=== PATIENT | female | born 2000 | race Caucasian/White ===

== ENCOUNTER 2023-05-06 10:41 | Observation (INO) | payer OTHER, SELFPAY ==
[2023-05-06] VITALS (9 sets, daily range): BP systolic 108–124; BP diastolic 55–69; PULSE 79–102
[2023-05-06] MEDS: 0.9 % SODIUM CHLORIDE 1,000 ML 1000 ML IV (11:58)
[2023-05-06] MEDS: TERBUTALINE SULFATE 1 MG/ML VIAL 0.25 MG SUBQ (12:01)
[2023-05-06 12:22] LABS: Bilirubin Urine NEGATIVE (NEGATIVE); Blood Urine NEGATIVE (NEGATIVE); Clarity Urine CLEAR (CLEAR); Color Urine LT. YELLOW (YELLOW); Glucose Urine UA NEGATIVE (NEGATIVE); Ketones Urine 40 mg/dL (NEGATIVE); Leukocyte Esterase Urine LARGE (NEGATIVE); Nitrite Urine NEGATIVE (NEGATIVE); Protein Urine NEGATIVE (NEG/TRACE); Specific Gravity Urine 1.025 (1.005-1.025); pH Urine 6.5 (5.0-9.0)
[2023-05-06 12:24] LABS: Urine Microscopic Indicated YES
[2023-05-06] MEDS: NIFEdipine 10 MG CAPSULE 30 MG PO (12:24)
[2023-05-06 12:34] LABS: Bacteria Urine SMALL #/HPF (NONE SEEN)
[2023-05-06 12:35] LABS: Cast Seen? NONE SEEN #/LPF (NONE SEEN); Crystals Seen? None Seen #/HPF (None Seen); Mucus Urine SMALL (NONE SEEN); Squamous Epithelial Cell Urine FEW #/LPF (NONE/RARE); Urine Culture Indicated YES
[2023-05-06] MEDS: CEPHALEXIN 500 MG CAPSULE PO (12:59)
== END 2023-05-06 13:57 | disposition home or self-care (01) ==
PROVIDERS: Admitting Provider Obstetrics & Gynecology; PCP Midwife; Visit Provider Obstetrics & Gynecology
DX: O26.893 Other specified pregnancy related conditions, third trimester (principal); R10.9 Unspecified abdominal pain; Z3A.34 34 weeks gestation of pregnancy
CPT/HCPCS: 81001; 87086; 96372; G0378; G0379; J3105

== ENCOUNTER 2023-06-04 04:38 | Inpatient (IN) | payer OTHER, SELFPAY ==
[2023-06-04] VITALS (76 sets, daily range): BP systolic 100–143; BP diastolic 49–91; PULSE 69–187; RESP 16–18; TEMP 37.3–37.9
--- OUTSIDE RECORDS SUMMARY | 2023-06-04 04:41 | XMS_ITS | CCD ---
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 Name Role Phone Bala Wick Unavailable Unavailable NONE, XXXX Unavailable Unavailable Bala Wick Unavailable Unavailable NONE, XXXX Unavailable Unavailable Unavailable Primary Care Provider Vita Ryder MD Primary Care Provider LISA WHITMOREERIE Admitting Unavailable KRISTIN NKECHI Attending Unavailable VITA SMALL Primary Care Unavailable Unavailable Primary Care Provider Anjali LAMBERTO NKECHI L Attending Unavailable FLORO, NKECHI L Attending Unavailable FLORO, NKECHI L Attending Unavailable FLORO, NKECHI L Attending Unavailable FLORO, NKECHI L Attending Unavailable FLORO, NKECHI L Attending Unavailable FLORO, NKECHI L Attending Unavailable FLORO, NKECHI L Referring Unavailable FLORO, NKECHI L Attending Unavailable Allergies Allergy Classification Reported Allergen(s) Allergy Type Date of Onset Reaction(s) Facility (1 source) Amoxicillin Drug Allergy 10-22-2021 [facility] (1 source) Penicillins Propensity to adverse reactions to drug 04-25-2013 [facility] Medications Current Medications Medication Drug Class(es) Dates Sig (Normalized) Sig (Original) acetaminophen 500 mg oral tablet (1 source) take 1 tablet by mouth every six hours as needed for pain acetaminophen (TYLENOL) 500 MG tablet Take 500 mg by mouth every 6 hours as needed for Pain 0 Active calcium chloride 0.0014 meq/ml / potassium chloride 0.004 meq/ml / sodium chloride 0.103 meq/ml / sodium lactate 0.028 meq/ml injectable solution (2 sources) Start: 10-22-2021 End: 10-22-2021 lactated ringers infusion etodolac 400 mg oral tablet (1 source) Nonsteroidal Anti-inflammatory Drug Start: 07-22-2018 take 1 tablet by mouth twice daily etodolac (LODINE) 400 MG tablet Take 1 tablet by mouth 2 times daily 30 tablet 0 07/22/2018 Active Vit-Fe Fumarate-FA ( VITAMIN PO) (1 source) take 1 tablet by mouth once daily Vit-Fe Fumarate-FA ( VITAMIN PO) Take 1 tablet by mouth daily 0 Active Completed/Discontinued Medications Medication Drug Class(es) Dates Sig (Normalized) Sig (Original) metroNIDAZOLE 250 mg oral tablet (1 source) Nitroimidazole Antimicrobial Start: 10-22-2021 End: 10-22-2021 metroNIDAZOLE (FLAGYL) tablet 2,000 mg Start: 10-22-2021 End: 10-22-2021 metroNIDAZOLE (FLAGYL) table t 2,000 mg Problems Active Problems Problem Classification Problem Date Documented Da te Episodic/Chronic Other complications of (2 sources) Abdominal pain in ; Translations: [Other specified related conditions, unspecified trimester] Onset: 10-22-2021 Episodic Past or Other Problems Problem Classification Problem Date Documented Da te Episodic/Chronic Lymphadenitis (1 source) Mesenteric lymphadenitis; Translations: [Nonspecific mesenteric lymphadenitis] Onset: 07-22-2018 07-22-2018 Episodic Results Test Name Value Interpretation Reference Range Facility US OB FOLLOW UP TRANSABDOMIN AL APPROACHon 04-04-2023 OB FOLLOW UP TRANSABDOMINAL APPROACH FINDINGS: Single live intrauterine . heart rate 138 bpm. somatic motion identified. Cephalic position. Anterior grade 1 placenta. GENA 17.07 cm. Cervical length not obtained secondary to position. Estimated sonographic gestational age 30 weeks, 2 days. This compares with sonographic gestational age by dates of 30 weeks, 2 days. Estimated sonographic date of delivery June 11, 2023. Estimated weight 1566 g (41.3% by LMP percentile). BPD 7.56 cm. HC 27.68 cm. FL 5.86 cm. AC 26.17 cm. IMPRESSION: Impression: Single live intrauterine with estimated sonographic gestational age 30 weeks, 2 days. ELECTRONICALLY SIGNED BY: Moustapha Mascorro MD Normal Not Available Cult,Urineon 10-23-2021 Cult,Urine Specimen Description .CLEAN CATCH URINE Culture NO SIGNIFICANT GROWTH Report Status FINAL 10/23/2021 Normal [facility] Comment on above: Performed By: #### U RC #### [facility] [address] [place] [address] Art Studio Teacher: Butch Herron MD [facility] [address] [place] [address] Art Studio Teacher: Gerardo Dao MD Microscopic Urinalysison - [facility] Bacteria, UA 1+ Abnormal None [facility] Epithelial Cells UA 10 TO 20 [facility] Interpretation and review of laboratory results Abnormal [facility] RBC, UA 2 TO 5 [facility] Trichomonas, UA 3+ Abnormal None [facility] WBC, UA 50 TO 100 [facility] Urinalysison 10-22-2021 Bilirubin Urine Negative NEGATIVE [facility] Color, UA Yellow Yellow [facility] Glucose, Ur Negative NEGATIVE [facility] Interpretation and review of laboratory results Abnormal [facility] Ketones Ql (U) Negative NEGATIVE [facility] Leukocyte esterase Test strip Ql (U) LARGE Abnormal NEGATIVE [facility] Nitrite, Urine Negative NEGATIVE [facility] pH, UA 7.0 [facility] Protein, UA Negative NEGATIVE [facility] Specific [place], UA 1.020 [facility] Turbidity UA Clear Clear [facility] Urine Hgb Negative NEGATIVE [facility] Urobilinogen, Urine Normal Normal [facility] Urinalysis, Routineon 2021 Bilirubin, SemiQt,Ur Negative Normal NEG [facility] Comment on above: Performed By: #### U DORI Hammond #### [facility] [address] [place] [address] Art Studio Teacher: Gerardo Dao MD Blood, Urine Negative Normal NEG [facility] Comment on above: Performed By: #### U AORLANDOO #### [facility] [address] [place] [address] Art Studio Teacher: Gerardo Dao MD Clarity (U) Clear Normal CLEAR [facility] Comment on above: Performed By: #### U A, UMICAO #### [facility] [address] [place] [address] [place] [address] Art Studio Teacher: Gerardo Dao MD Color (U) Yellow Normal YEL [facility] Comment on above: Performed By: #### U A, UMICAO #### [facility] [address] [place] [address] [place] [address] Art Studio Teacher: Gerardo Dao MD Glucose Ql (U) Negative Normal NEG [facility] Comment on above: Performed By: #### U A, UMICAO #### [facility] [address] [place] [address] [place] [address] Art Studio Teacher: Gerardo Dao MD Ketones Ql (U) Negative Normal NEG [facility] Comment on above: Performed By: #### U A, UMICAO #### [facility] [address] [place] [address] Dr[place], [place] [id number] Art Studio Teacher: Gerardo Dao MD Leukocyte esterase Test strip Ql (U) LARGE Abnormal NEG [facility] Comment on above: Performed By: #### U A, UMICAO #### [facility] [address] [place] [address] [place] [address] Art Studio Teacher: Gerardo Dao MD Nitrite,Ur Negative Normal NEG [facility] Comment on above: Performed By: #### U A, UMICAO #### [facility] [address] [place] [address] Art Studio Teacher: Gerardo Dao MD PH,Ur 7.0 Normal 5.0-9.0 [facility] Comment on above: Performed By: #### U A, UMICAO #### [facility] [address] [place], [place] [id number] Art Studio Teacher: Gerardo Dao MD Protein Ql (U) Negative Normal NEG [facility] Comment on above: Performed By: #### U A, UMICAO #### [facility] [address] [place] [address] Dr[place], [place] [id number] Art Studio Teacher: Gerardo Dao MD Spec. [place],Ur 1.020 Normal 1.010-1.020 [facility] Comment on above: Performed By: #### U A, UMICAO #### [facility] [address] [place] [address] Dr[place], [place] [id number] Art Studio Teacher: Gerardo Dao MD Urobilinogen,Ur Normal Normal NORM [facility] Comment on above: Performed By: #### U A, UMICAO #### [address] [place], [place] [id number] Art Studio Teacher: Gerardo Dao MD Urinalysis,Microon 2 ----- Normal [facility] Comment on above: Performed By: #### U A, UMICAO #### [address] [place] [address] Art Studio Teacher: Gerardo Dao MD Bacteria 1+ Abnormal NONE [facility] Comment on above: Performed By: #### U A, UMICAO #### [facility] [address] [place] [address] [place] [address] Art Studio Teacher: Gerardo Dao MD Epithelial cells LM Ql (Urine sed) 10 TO 20 Normal 0-25 [facility] Comment on above: Performed By: #### U A, UMICAO #### [facility] [address] [place] [address] Dr[place], [place] [id number] Art Studio Teacher: Gerardo Dao MD Trichomonas 3+ Abnormal NONE [facility] Comment on above: Performed By: #### U A, UMICAO #### [facility] [address] [place] [address] Dr[place], [place] [id number] Art Studio Teacher: Gerardo Dao MD Urine RBC's 2 TO 5 Normal 0-2 [facility] Comment on above: Performed By: #### U A, ORLANDOO #### [facility] [address] [place] [id number] Art Studio Teacher: Gerardo Dao MD Urine WBC's 50 TO 100 Normal 0-5 [facility] Comment on above: Performed By: #### U A, ORLANDOO #### [facility] [address] [place] [address] Art Studio Teacher: Gerardo Dao MD US OB 2nd/3rd Trimesteron OB 2nd/3rd Trimester FINDINGS: Comparison is made with the prior examination of June 07, 2021. A single, viable intrauterine is present with adequate cardiac (151 beats per minute) and activity and amniotic fluid volume. Amniotic fluid index is 16.0 cm. Morphology is grossly normal. The cervix is long and closed, 4.9 cm. The current sonographic age is 20 weeks and 6 days, based on the following measurements: BPD 4.8 cm (20 weeks, 4 days) Head Qskfrfsyecfww73.3 cm (20 weeks, 5 days) Abdominal Amzczonrfgppt40.3 cm (20 weeks, 3 days) Femur Length 3.7 cm (21 weeks, 4 days) PresentationCephalic Placenta Fundal Grade I Weight (g) by Percentile 65.2%* These measurements result in an estimated date of delivery of January 03, 2022. The current estimated weight is 389 grams (14 ounces). IMPRESSION: Single, viable intrauterine , current sonographic age of 20 weeks and 6 days, with an estimated date of delivery of January 03, 2022. Estimated date of delivery on the prior examination was January 06, 2022. *Estimated Weight (g) by Percentile is based upon an accurate estimated age based on last menstrual period. Report reported and signed by J Luis Jama on 08/22/2021 1132 Normal [facility] Urgent Care Technician Q - ABO GROUP AND RH TYPEon 06-07-2021 ABO group Nom (Bld) A Normal [facility] Comment on above: Order Comment: [facility] performed at: [place], [address] [facility], [address] [place] [address], [phone], School Child Care Attendant: Amado Horner MD [facility] Date/Time: [facility] Results Received Date/Time: [facility] Reported Date/Time: Performed By: #### 8 6702A, 60326X, 79157, 430A, 265F, 42A, 6304R, 2782A, 16122 #### [facility] Default [address] [place] [address] RH TYPE Negative Normal [facility] Comment on above: Order Comment: [facility] performed at: [place], [facility], [address] [facility], [address] [place] [address], [phone], School Child Care Attendant: Amado Horner MD [facility] Date/Time: [facility] Results Received Date/Time: [facility] Reported Date/Time: Result Comment: For additional information, please refer to http://education.WorldViz/faq/LEZ485 (This link is being provided for informational/ educational purposes only.) Performed By: #### 8 6702A, 08604G, 50051, 430A, 265F, 42A, 6304R, 2782A, 63882 #### [facility] [address] [place] [address] Q - ANTIBODY SCREEN,RBC W/RE FL ID,TITER AND AGon 06-07-2021 ANTIBODY SCREEN, RBC W/REFL ID, TITER AND AG Detected Normal [facility] Comment on above: Order Comment: [facility] performed at: [place], [facility], [address] [facility], [address] [place] [address], [address] [place] [address], School Child Care Attendant: Amado Horner MD [facility] Date/Time: [facility] Results Received Date/Time: [facility] Reported Date/Time: Result Comment: Refe rence range No antibodies detected This assay is a screening test for the detection of red blood cell antibodies. The test is not to be used for pretransfusion screening or for the medical management of an alloimmunized . Performed By: #### 8 6702A, 65218U, 90354, 430A, 265F, 42A, 6304R, 2782A, 55516 #### [facility] Default [address] [place] [address] Q - CBC W/DIFF AND PLTon BASOABS 12 cells/uL Normal 0-200 [facility] Comment on above: Order Comment: [facility] performed at: [place], [facility], [address] [place] [address], [address] [place] [address], [address] [place] [address], School Child Care Attendant: Amado Horner MD [facility] Date/Time: [facility] Results Received Date/Time: [facility] Reported Date/Time: Performed By: #### 1 1363, 1149T, 76476S, 02554, 8472 #### [facility] [address] [place] [address] Basophils/100 WBC (Bld) 0.2 % Normal [facility] Comment on above: Order Comment: [facility] performed at: [employer] [facility], [address] [facility], [address] [place] [address], [address] [place] [address], School Child Care Attendant: Amado Horner MD [facility] Date/Time: [facility] Results Received Date/Time: [facility] Reported Date/Time: Performed By: #### 1 1363, 1149T, 83036R, 45671, 8472 #### [facility] [address] [place] [address] EOSABS 68 cells/uL Normal 15-500 [facility] Comment on above: Order Comment: [facility] performed at: [place], [facility], [address] [facility], [address] [place] [address], [address] [place] [address], School Child Care Attendant: Amado Horner MD [facility] Date/Time: [id number] [facility] Received Date/Time: [facility] Reported Date/Time: Performed By: #### 1 1363, 1149T, 79808R, 82090, 8472 #### [facility] [address] [place] [address] Eosinophils/100 WBC (Bld) 1.1 % Normal [facility] Techn[facility] Comment on above: Order Comment: [facility] performed at: [place], [facility], [address] [place] [address], [address] [place] [address], [address] [place] [address], School Child Care Attendant: Amado Horner MD [facility] Date/Time: [facility] Results Received Date/Time: [facility] Reported Date/Time: Performed By: #### 1 1363, 1149T, 21660S, 84634, 8472 #### [facility] [address] [place] [address] Erythrocyte distribution width (RBC) [Ratio] 12.9 % Normal 11.0-15.0 [facility] Techn[facility] Comment on above: Order Comment: [facility] performed at: [place], [facility], [address] [place] [address], [address] [place] [address], [address] [place] [address], School Child Care Attendant: Amado Horner MD [facility] Date/Time: [facility] Results Received Date/Time: [facility] Reported Date/Time: Performed By: #### 1 1363, 1149T, 57374Q, 33495, 8472 #### [facility] [address] [place] [address] Hematocrit (Bld) [Volume fraction] 38.7 % Normal 35.0-45.0 [facility] Techn[facility] Comment on above: Order Comment: [facility] performed at: [place], [facility], [address] [place] [address], [address] [place] [address], [address] [place] [address], School Child Care Attendant: Amado Horner MD [facility] Date/Time: [facility] Results Received Date/Time: [facility] Reported Date/Time: Performed By: #### 1 1363, 1149T, 59070F, 82695, 8472 #### [facility] [address] [place] [address] Hemoglobin (Bld) [Mass/Vol] 12.7 g/dL Normal 11.7-15.5 [facility] Comment on above: Order Comment: [facility] performed at: [place], [facility], [address] , [address] [place] [address], [address] [place] [address], School Child Care Attendant: Amado Horner MD [facility] Date/Time: [facility] Results Received Date/Time: [facility] Reported Date/Time: Performed By: #### 1 1363, 1149T, 21343E, 79942, 8472 #### [facility] Default [address] [place] [address] Lymphocytes (Bld) [#/Vol] 1.978 10*3/uL Normal 850-3900 [facility] Technician Comment on above: Order Comment: [facility] performed at: [place], [facility], [address] , [address] [place] [address], [address] [place] [address], School Child Care Attendant: Amado Horner MD [facility] Date/Time: [facility] Results Received Date/Time: [facility] Reported Date/Time: Performed By: #### 1 1363, 1149T, 32634V, 98900, 8472 #### [facility] [address] [place] [address] Lymphocytes/100 WBC (Bld) 31.9 % Normal [facility] Technician Comment on above: Order Comment: [facility] performed at: [place], [facility], [address], [address] [place] [address], [address] [place] [address], School Child Care Attendant: Amado Horner MD [facility] Date/Time: [facility] Results Received Date/Time: [facility] Reported Date/Time: Performed By: #### 1 1363, 1149T, 65244Z, 51022, 8472 #### [facility] Default [address] [place] [address] MCH (RBC) [Entitic mass] 29.0 pg Normal 27.0-33.0 [facility] Comment on above: Order Comment: [facility] performed at: [facility], [facility], [address] [facility], [address] [place] [address], [address] [place] [address], School Child Care Attendant: Amado Horner MD [facility] Date/Time: [facility] Results Received Date/Time: [facility] Reported Date/Time: Performed By: #### 1 1363, 1149T, 47563H, 03500, 8472 #### [facility] Default [address] [place] [address] MCHC (RBC) [Mass/Vol] 32.8 g/dL Normal 32.0-36.[address] [facility] Comment on above: Order Comment: [facility] performed at: [facility], [facility], [address] [facility], [address] [place] [address], [address] [place] [address], School Child Care Attendant: Amado Horner MD [facility] Date/Time: [facility] Results Received Date/Time: [facility] Reported Date/Time: Performed By: #### 1 1363, 1149T, 49149D, 49133, 8472 #### [facility] Default [address] [place] [address] MCV (RBC) [Entitic vol] 88.4 fL Normal 80.0-100.0 [facility] Care Technician Comment on above: Order Comment: [facility] performed at: [facility], [facility], [address] [place] [address], [address] [place] [address], [address] [place] [address], School Child Care Attendant: Amado Horner MD [facility] Date/Time: [facility] Results Received Date/Time: [facility] Reported Date/Time: Performed By: #### 1 1363, 1149T, 55755X, 24868, 8472 #### [facility] Default [address] [place] [address] MONOABS 391 cells/uL Normal 200-950 [facility] Comment on above: Order Comment: [facility] performed at: [place], [facility], [address] , [address] [place] [address], [address] [place] [address], School Child Care Attendant: Amado Horner MD [facility] Date/Time: [facility] Results Received Date/Time: [facility] Reported Date/Time: Performed By: #### 1 1363, 1149T, 55891O, 19929, 8472 #### [facility] Default [address] [place] [address] Monocytes/100 WBC (Bld) 6.3 % Normal [facility] Comment on above: Order Comment: [facility] performed at: [place], [address] , [address] [place] [address], [address] [place] [address], School Child Care Attendant: Amado Horner MD [facility] Date/Time: [facility] Results Received Date/Time: [facility] Reported Date/Time: Performed By: #### 1 1363, 1149T, 11104T, 80744, 8472 #### [facility] Default [address] [place] [address] Neutrophils (Bld) [#/Vol] 3.751 10*3/uL Normal 0217-1365 [facility] Comment on above: Order Comment: [facility] performed at: [place], [facility], [address] , [address] [place] [address], [address] [place] [address], School Child Care Attendant: Amado Horner MD [facility] Date/Time: [facility] Results Received Date/Time: [facility] Reported Date/Time: Performed By: #### 1 1363, 1149T, 16171S, 14953, 8472 #### [facility] Default [address] [place] [address] Neutrophils/100 WBC (Bld) 60.5 % Normal [facility] Comment on above: Order Comment: [facility] performed at: [place], [facility], [address] [place] [address], [address] [place] [address], [address] [place] [address], School Child Care Attendant: Amado Horner MD [facility] Date/Time: [facility] Results Received Date/Time: [facility] Reported Date/Time: Performed By: #### 1 1363, 1149T, 53920W, 35314, 8472 #### [facility] Default [address] [place] [address] Platelet mean volume (Bld) [Entitic vol] 12.0 fL Normal 7.5-12.5 [facility] Specialist Comment on above: Order Comment: [facility] performed at: [place], [facility], [address] [place] [address], [address] [place] [address], [address] [place] [address], School Child Care Attendant: Amado Horner MD [facility] Date/Time: [facility] Results Received Date/Time: [facility] Reported Date/Time: Performed By: #### 1 1363, 1149T, 90529M, 91190, 8472 #### [facility] Default [address] [place] [address] Platelets (Bld) [#/Vol] 222 10*3/uL Normal 140-400 [facility] Comment on above: Order Comment: [facility] performed at: [place], [facility], [address] [facility], [address] [place] [address], [address] [place] [address], School Child Care Attendant: Amado Horner MD [facility] Date/Time: [facility] Results Received Date/Time: [facility] Reported Date/Time: Performed By: #### 1 1363, 1149T, 67818C, 48204, 8472 #### [facility] Default [address] [place] [address] RBC (Bld) [#/Vol] 4.38 10*6/uL Normal 3.80-5.10 [facility] [place] [facility] Comment on above: Order Comment: [facility] performed at: [place], [facility], [address], [address] [place] [address], [address] [place] [address], School Child Care Attendant: Amado Horner MD [facility] Date/Time: [facility] Results Received Date/Time: [facility] Reported Date/Time: Performed By: #### 1 1363, 1149T, 47934N, 21588, 8472 #### [facility] Default [address] [place] [address] WBC (Bld) [#/Vol] 6.2 10*3/uL Normal 3.8-10.8 [facility] Urgent Care Technician Comment on above: Order Comment: [facility] performed at: [place], [facility], [address], [address] [place] [address], [address] [place] [address], School Child Care Attendant: Amado Horner MD [facility] Date/Time: [facility] Results Received Date/Time: [facility] Reported Date/Time: Performed By: #### 1 1363, 1149T, 49594W, 00366, 8472 #### [facility] Default [address] [place] [address] Q - CHLAMYDIA TRACHOMATIS/NE ISSERIA GONORRHOEAE RNA TMAon 06-07-2021 CHLAMYDIA TRACHOMATIS RNA, TMA, UROGENITAL Not detected Normal NOT DETECTED [facility] Technician Comment on above: Order Comment: [facility] performed at: [place], [facility], [address], [address] [place] [address], [address] [place] [address], School Child Care Attendant: Amado Horner MD [facility] Collection Date/Time: [facility] Results Received Date/Time: [facility] Reported Date/Time: Performed By: #### 1 1363, 1149T, [id number], 93498, 8472 #### [facility] Default [address] [place] [address] NEISSERIA GONORRHOEAE RNA, TMA, UROGENITAL Not detected Normal NOT DETECTED [facility] Technician Comment on above: Order Comment: [facility] performed at: [place], [facility], [address], [address] [place], [address] [place] [address], School Child Care Attendant: Amado Horner MD [facility] Collection Date/Time: [facility] Results Received Date/Time: [facility] Reported Date/Time: Performed By: #### 1 1363, 1149T, 02930J, 06166, 8472 #### [facility] Default [address] [place] [address] Q - CULTURE,URINE,ROUTINEon 06-07-2021 CULTURE, URINE, ROUTINE SEE NOTE Normal [facility] Technician Comment on above: Order Comment: [facility] performed at: [place], [facility], [address], [address] [place] [address], [address] [place] [address], School Child Care Attendant: Amado Horner MD [facility] Collection Date/Time: [facility] Results Received Date/Time: [facility] Reported Date/Time: Result Comment: CULT URE, URINE, ROUTINE Micro Number: [id number] Test Status: Final Specimen Source: Urine Specimen Quality: Adequate Result: Mixed genital ana isolated. These superficial bacteria are not indicative of a urinary tract infection. No further organism identification is warranted on this specimen. If clinically indicated, recollect clean-catch, mid-stream urine and transfer immediately to Urine Culture Transport Tube. Performed By: #### 1 1363, 1149T, 14390D, 61904, 8472 #### [facility] Default [address] [place] [address] Q - DRUG TOX MONITORING 6 TH CONFIRMATION,URINEon 06-07-2021 Amphetamines Negative Normal <500 [facility] Technician Comment on above: Order Comment: [facility] performed at: [place], [facility], [address], [address] [place], [address] [place] [address], School Child Care Attendant: Amado Horner MD [facility] Collection Date/Time: [facility] Results Received Date/Time: [facility] Reported Date/Time: Performed By: #### 1 1363, 1149T, 40652O, 80121, 8472 #### [facility] Default [address] [place] [address] Barbiturates Negative Normal <300 [facility] Comment on above: Order Comment: [facility] performed at: [place], [facility], [address] [place] [address], [address] [place] [address], School Child Care Attendant: Amado Horner MD [facility] Collection Date/Time: [facility] Results Received Date/Time: [facility] Reported Date/Time: Performed By: #### 1 1363, 1149T, 48935W, 75569, 8472 #### [facility] Default [address] [place] [address] Benzodiazepines Negative Normal <100 [facility] Comment on above: Order Comment: [facility] Testing performed at: [place], [facility], [address] , [address] [place] [address], [address] [place] [address], School Child Care Attendant: Amado Horner MD [facility] Collection Date/Time: [facility] Results Received Date/Time: [facility] Reported Date/Time: Performed By: #### 1 1363, 1149T, 91767K, 95014, 8472 #### [facility] Default [address] [place] [address] Cocaine Metabolite Negative Normal <150 [facility] Comment on above: Order Comment: [facility] Testing performed at: [place], [facility], [address] , [address] [place] [address], [address] [place] [address], School Child Care Attendant: Amado Horner MD [facility] Collection Date/Time: [facility] Results Received Date/Time: [facility] Reported Date/Time: Performed By: #### 1 1363, 1149T, 14492Q, 30359, 8472 #### [facility] Default [address] [place] [address] COMMENT SEE NOTE Normal [facility] Specialist Comment on above: Order Comment: [facility] Testing performed at: [place], [facility], [address], [address] [place], [address], School Child Care Attendant: Amado Horner MD [facility] Collection Date/Time: [facility] Results Received Date/Time: [facility] Reported Date/Time: Result Comment: See Note 1 Note 1 This drug testing is for medical treatment only. Analysis was performed as non-forensic testing and these results should be used only by healthcare providers to render diagnosis or treatment, or to monitor progress of medical conditions. For assistance with interpreting these drug results, please contact a [facility] T[facility] Specialist: [phone] M-F, 8am-6pm EST. Performed By: #### 1 1363, 1149T, 15926I, 48176, 8472 #### [facility] Default [address] [place] [address] Result Comment: The analytical performance characteristics of this assay, when used to test SurePath(TM) specimens have been determined by [facility]. The modifications have not been cleared or approved by the FDA. This assay has been validated pursuant to the CLIA regulations and is used for clinical purposes. For additional information, please refer to https://education.[employer]izer/faq/OTD493 (This link is being provided for information/ educational purposes only.) Marijuana Metabolite 20 Negative Normal <20 [facility] Technician Comment on above: Order Comment: [facility] performed at: [place], [facility], [address] [facility], [place], [address], School Child Care Attendant: Amado Horner MD [facility] Collection Date/Time: [facility] Results Received Date/Time: [facility] Reported Date/Time: Performed By: #### 1 1363, 1149T, 89919I, 38603, 8472 #### [facility] Default [address] [place] [address] Methadone Metabolite Negative Normal <100 [facility] Specialist Comment on above: Order Comment: [facility] Testing performed at: [employer], [facility], [address] [facility], [address] [place] [address], [address] [place] [address], School Child Care Attendant: Amado Horner MD [facility] Collection Date/Time: [facility] Results Received Date/Time: [facility] Reported Date/Time: Performed By: #### 1 1363, 1149T, 89854T, 96906, 8472 #### [facility] Default [address] [place] [address] Opiates Negative Normal <100 [facility] Specialist Comment on above: Order Comment: [facility] Testing performed at: [employer], [facility], [address] [place] [address], [address] [place] [address], [address] [place] [address], School Child Care Attendant: Amado Horner MD [facility] Collection Date/Time: [facility] Results Received Date/Time: [facility] Reported Date/Time: Performed By: #### 1 1363, 1149T, 08459B, 28979, 8472 #### [facility] Default [address] [place] [address] Oxycodone Negative Normal <100 [facility] Specialist Comment on above: Order Comment: [facility] performed at: [place], [facility], [address] [place] [address], [address] [place] [address], [address] [place] [address], School Child Care Attendant: Amado Horner MD [facility] Collection Date/Time: [facility] Results Received Date/Time: [facility] Reported Date/Time: Performed By: #### 1 1363, 1149T, 46036R, 91577, 8472 #### [facility] Default [address] [place] [address] Phencyclidine Negative Normal <25 [facility] Technician Comment on above: Order Comment: [facility] Testing performed at: [employer] [facility], [address] , [address] [place] [address], [address] [place] [address], School Child Care Attendant: Amado Horner MD [facility] Collection Date/Time: [facility] Results Received Date/Time: [facility] Reported Date/Time: Performed By: #### 1 1363, 1149T, 37409M, 74410, 8472 #### [facility] Default [address] [place] [address] Q - HEPATITIS B SURFACE ANTI GEN W/ REFLEXon 06-07-2021 HEPATITIS B SURFACE ANTIGEN Non-Reactive Normal NON-REACTIVE [facility] Specialist Comment on above: Order Comment: [facility] Testing performed at: [facility], [facility], [address] [facility], [address] [place] [address], [address] [place] [address], School Child Care Attendant: Amado Horner MD [facility] Collection Date/Time: [facility] Results Received Date/Time: [facility] Reported Date/Time: Performed By: #### 1 1363, 1149T, 57782L, 74588, 8472 #### [facility] Default [address] [place] [address] Q - URINALYSIS WITH REFLEX T O MICROSCOPICon 06-07-2021 Appearance (U) TURBID Abnormal CLEAR [facility] Specialist Comment on above: Order Comment: [facility] Testing performed at: [facility], [facility], [address] [facility], [address] [place] [address], [address] [place] [address], School Child Care Attendant: Amado Horner MD [facility] Collection Date/Time: [facility] Results Received Date/Time: [facility] Reported Date/Time: Performed By: #### 1 1363, 1149T, 19845W, 44901, 8472 #### [facility] Default [address] [place] [address] BACTERIA NONE SEEN Normal NONE SEEN [facility] Technician Comment on above: Order Comment: [facility] Testing performed at: [place], [facility], [address] [facility], [address] [place] [address], [address] [place] [address], School Child Care Attendant: Amado Horner MD [facility] Collection Date/Time: [facility] Results Received Date/Time: [facility] Reported Date/Time: Performed By: #### 1 1363, 1149T, 52391C, 07457, 8472 #### [facility] Default [address] [place] [address] Bilirubin Ql (U) Negative Normal NEGATIVE [facility] Technician Comment on above: Order Comment: [facility] Testing performed at: [place], [facility], [address] , [address] [place] [address], [address] [place] [address], School Child Care Attendant: Amado Horner MD [facility] Collection Date/Time: [facility] Results Received Date/Time: [facility] Reported Date/Time: Performed By: #### 1 1363, 1149T, 84224P, 85923, 8472 #### [facility] Default [address] [place] [address] Color (U) YELLOW Normal YELLOW [facility] Technician Comment on above: Order Comment: [facility] Testing performed at: [place], [facility], [address] , [address] [place] [address], [address] [place] [address], School Child Care Attendant: Amado Horner MD [facility] Collection Date/Time: [facility] Results Received Date/Time: [facility] Reported Date/Time: Performed By: #### 1 1363, 1149T, 19393U, 60951, 8472 #### [facility] Default [address] [place] [address] Glucose Ql (U) Negative Normal NEGATIVE [facility] Urgent Care Technician Comment on above: Order Comment: [facility] Testing performed at: [place], [facility], [address], [address] [place] [address], [address] [place] [address], School Child Care Attendant: Amado Horner MD [facility] Collection Date/Time: [facility] Results Received Date/Time: [id number] [facility] Reported Date/Time: Performed By: #### 1 1363, 1149T, 95470Z, 70729, 8472 #### [facility] Default [address] [place] [address] HYALINE CAST NONE SEEN Normal NONE SEEN [facility]gent Care Technician Comment on above: Order Comment: [facility] Testing performed at: [place], [facility], [address] , [address] [place] [address], [address] [place] [address], School Child Care Attendant: Amado Horner MD [facility] Collection Date/Time: [facility] Results Received Date/Time: [facility] Reported Date/Time: Performed By: #### 1 1363, 1149T, 73843V, 85270, 8472 #### [facility] Default [address] [place] [address] Ketones Ql (U) Negative Normal NEGATIVE [facility] Specialist Comment on above: Order Comment: [facility] Testing performed at: [place], [facility], [address] , [address] [place] [address], [address] [place] [address], School Child Care Attendant: Amado Horner MD [facility] Collection Date/Time: [facility] Results Received Date/Time: [facility] Reported Date/Time: Performed By: #### 1 1363, 1149T, 33994T, 82686, 8472 #### [facility] Default [address] [place] [address] Leukocyte esterase Test strip Ql (U) 3+ Abnormal NEGATIVE [facility] Specialist Comment on above: Order Comment: [facility] Testing performed at: [place], [facility], [address] , [address] [place] [address], [address] [place] [address], School Child Care Attendant: Amado Horner MD [facility] Collection Date/Time: [facility] Results Received Date/Time: [facility] Reported Date/Time: Performed By: #### 1 1363, 1149T, 82641E, 59503, 8472 #### [facility] Default [address] [place] [address] Nitrite Ql (U) Negative Normal NEGATIVE [facility] Urgent Care Technician Comment on above: Order Comment: [facility] Testing performed at: [employer] [facility], [address] [place] [address], [address] [place] [address], [address] [place] [address], School Child Care Attendant: Amado Horner MD [facility] Collection Date/Time: [facility] Results Received Date/Time: [facility] Reported Date/Time: Performed By: #### 1 1363, 1149T, 15977K, 21862, 8472 #### [facility] Default [address] [place] [address] OCCULT BLOOD Negative Normal NEGATIVE [facility] Technician Comment on above: Order Comment: [facility] Testing performed at: [employer] [facility], [address] [place] [address], [address] [place] [address], [address] [place] [address], School Child Care Attendant: Amado Horner MD [facility] Collection Date/Time: [facility] Results Received Date/Time: [facility] Reported Date/Time: Performed By: #### 1 1363, 1149T, 92059B, 15910, 8472 #### [facility] Default [address] [place] [address] pH (U) 8.0 [pH] Normal 5.0-8.0 [facility] Technician Comment on above: Order Comment: [facility] Testing performed at: [employer] [facility], [address] [facility], [address] [place] [address], [address] [place] [address], School Child Care Attendant: Amado Horner MD [facility] Collection Date/Time: [facility] Results Received Date/Time: [facility] Reported Date/Time: Performed By: #### 1 1363, 1149T, 55945H, 44814, 8472 #### [facility] Default [address] [place] [address] Protein Ql (U) TRACE Abnormal NEGATIVE [facility] Urgent Care Technician Comment on above: Order Comment: [facility] Testing performed at: [employer], [employer] [facility], [address] [facility], [address] [place] [address], [address] [place] [address], School Child Care Attendant: Amado Horner MD [facility] Collection Date/Time: [facility] Results Received Date/Time: [facility] Reported Date/Time: Performed By: #### 1 1363, 1149T, 34227J, 13840, 8472 #### [facility] Default [address] [place] [address] RBC 0-2 Normal < OR = 2 [facility] Technician Comment on above: Order Comment: [facility] Testing performed at: [place], [employer] [facility], [address] [facility], [address] [place] [address], [address] [place] [address], School Child Care Attendant: Amado Horner MD [facility] Collection Date/Time: [facility] Results Received Date/Time: [facility] Reported Date/Time: Performed By: #### 1 1363, 1149T, 65396F, 39701, 8472 #### [facility] Default [address] [place] [address] Specific gravity (U) [Rel density] 1.018 Normal 1.001-1.035 [facility] Technician Comment on above: Order Comment: [facility] Testing performed at: [place], [employer] [facility], [address] [facility], [address] [place] [address], [address] [place] [address], School Child Care Attendant: Amado Horner MD [facility] Collection Date/Time: [facility] Results Received Date/Time: [facility] Reported Date/Time: Performed By: #### 1 1363, 1149T, 65576P, 74840, 8472 #### [facility] Default [address] [place] [address] SQUAMOUS EPITHELIAL CELLS 10-20 Abnormal < OR = 5 [facility] Technician Comment on above: Order Comment: [facility] Testing performed at: [employer], [employer], [address] [facility], [address] [place] [address], [address] [place] [address], School Child Care Attendant: Amado Horner MD [facility] Collection Date/Time: [facility] Results Received Date/Time: [facility] Reported Date/Time: Performed By: #### 1 1363, 1149T, 01232J, 42115, 8472 #### [facility] Default [address] [place] [address] WBC 0-5 Normal < OR = 5 [facility] Technician Comment on above: Order Comment: [facility] Testing performed at: [employer], [facility], [address], [address] [place], [address], School Child Care Attendant: Amado Horner MD [facility] Collection Date/Time: [id number] [facility] Results Received Date/Time: [id number] [facility] Reported Date/Time: Performed By: #### 1 1363, 1149T, 53738E, 89383, 8472 #### [facility] Default [address] [place] [address] US OB 1ST Trimesteron 2021 US OB 1ST Trimester FINDINGS: A single intrauterine gestational sac is present without significant subchorionic hemorrhage. A single pole is present, cardiac heart rate identified (168 beats per minute). Yolk sac also is seen. Current sonographic age is 9 weeks and 4 days based on the crown-rump length measurement of2.8 cm. Based on this age, current estimated date of delivery is January 06, 2022. No pelvic fluid or worrisome adnexal mass lesions are seen. Cervical length is 3.8 cm. IMPRESSION: Findings consistent with an early intrauterine gestational , current sonographic age of 9 weeks and 4 days resulting in an estimated date of delivery of January 06, 2022. Report reported and signed by J Luis Jama on 06/07/2021 1200 Normal [facility] Urgent Care Technician Q - CHLAMYDIA TRACHOMATIS/NE ISSERIA GONORRHOEAE RNA TMAon 05-09-2021 CHLAMYDIA TRACHOMATIS RNA, TMA, UROGENITAL Not detected Normal NOT DETECTED [facility] Technician Comment on above: Order Comment: [facility] Testing performed at: [facility] [employer], [facility], [address], [address] [place], [address] [place] [address], School Child Care Attendant: Amado Horner MD [facility] Collection Date/Time: [facility] Results Received Date/Time: [facility] Reported Date/Time: Performed By: #### 1 1363, 1149T, 74174W, 37705, 8472 #### [facility] Default [address] [place] [address] COMMENT SEE NOTE Normal [facility] Comment on above: Order Comment: [facility] Testing performed at: [place], [facility], [address] , [address] [place] [address], [address] [place] [address], School Child Care Attendant: Amado Horner MD [facility] Collection Date/Time: [facility] Results Received Date/Time: [facility] Reported Date/Time: Result Comment: The analytical performance characteristics of this assay, when used to test SurePath(TM) specimens have been determined by [facility]. The modifications have not been cleared or approved by the FDA. This assay has been validated pursuant to the CLIA regulations and is used for clinical purposes. For additional information, please refer to https://education.[employer]/faq/IZS344 (This link is being provided for information/ educational purposes only.) Performed By: #### 1 1363, 1149T, 98977S, 10749, 8472 #### [facility] Default [address] [place] [address] NEISSERIA GONORRHOEAE RNA, TMA, UROGENITAL Not detected Normal NOT DETECTED [facility] Technician Comment on above: Order Comment: [facility] performed at: [place], [facility], [address] , [address] [place] [address], [address] [place] [address], School Child Care Attendant: Amado Horner MD [facility] Collection Date/Time: [facility] Results Received Date/Time: [facility] Reported Date/Time: Performed By: #### 1 1363, 1149T, 67803E, 08149, 8472 #### [facility] Default [address] [place] [address] Q - HCG [place] Q[place] 2 [place] [address] m[IU]/mL [facility] Specialist Comment on above: Order Comment: [facility] performed at: [employer] [facility], [address], [address] [place] [address], [address] [place] [address], School Child Care Attendant: Amado Horner MD [facility] Collection Date/Time: [facility] Results Received Date/Time: [facility] Reported Date/Time: Result Comment: Refe rence Range Non or premenopausal <5 Postmenopausal <10 Values from different assay methods may vary. The use of this assay to monitor or to diagnose patients with cancer or any condition unrelated to has not been cleared or approved by the FDA or the hl7 interface developer of the assay. Performed By: #### 1 1363, 1149T, 47166G, 74566, 8472 #### [facility] Default [address] [place] [address] Q - HEPATITIS C ANTIBODY W/R EFLEX TO HCV RNA,QUANT,RT-PCRon 05-09-2021 HEPATITIS C ANTIBODY Non-Reactive Normal NON-REACTIVE [facility] Comment on above: Order Comment: [facility] performed at: [employer] [facility], [address] [facility], [address] [place] [address], [address] [place] [address], [employer] Child Care Attendant: Amado Horner MD [facility] Collection Date/Time: [facility] Results Received Date/Time: [facility] Reported Date/Time: Performed By: #### 1 1363, 1149T, 46654E, 77166, 8472 #### [facility] Default [address] [place] [address] SIGNAL TO CUT-OFF 0.02 Normal <1.00 [facility] Comment on above: Order Comment: [facility] performed at: [employer] [facility], [address] , [address] [place] [address], [address], School Child Care Attendant: Amado Horner MD [facility] Date/Time: [facility] Results Received Date/Time: [facility] Reported Date/Time: Result Comment: HCV antibody was non-reactive. There is no laboratory evidence of HCV infection. In most cases, no further action is required. However, if recent HCV exposure is suspected, a test for HCV RNA (test code 16493) is suggested. For additional information please refer to http://[employer] Live [employer]/faq/QKV46d7 (This link is being provided for informational/ educational purposes only.) Performed By: #### 1 1363, 1149T, 09827L, 14402, 8472 #### [facility] Default [address] [place] [address] Q - HIV 1/2 ANTIGEN/ANTIBODY ,FOURTH GENERATION W/RFLon 05-09-2021 HIV AG/AB, 4TH GEN Non-Reactive Normal NON-REACTIVE No rthern [facility] Comment on above: Order Comment: [facility] performed at: [facility], [employer], [address] [place] [address], [address] [place] [address], [address], School Child Care Attendant: Amado Horner MD [facility] Collection Date/Time: [facility] Results Received Date/Time: [facility] Reported Date/Time: Result Comment: HIV- 1 antigen and HIV-1/HIV-2 antibodies were not detected. There is no laboratory evidence of HIV infection. PLEASE NOTE: This information has been disclosed to you from records whose confidentiality may be protected by state law. If your state requires such protection, then the state law prohibits you from making any further disclosure of the information without the specific written consent of the person to whom it pertains, or as otherwise permitted by law. A general authorization for the release of medical or other information is NOT sufficient for this purpose. For additional information please refer to [email or web address] (This link is being provided for informational/ educational purposes only.) The performance of this assay has not been clinically validated in patients less than 2 years old. Performed By: #### 1 1363, 1149T, 83828X, 88730, 8472 #### [facility] Default [address] [place] [address] Q - RPR (MONITOR) W/RFX TITE Jesus 05-09-2021 RPR (MONITOR) W/REFL TITER Non-Reactive Normal NON-REACTIVE [facility] Urgent Care Technician Comment on above: Order Comment: [facility] performed at: QPT, [facility], [address], [address] [facility], [place], [address], School Child Care Attendant: Amado Horner MD [facility] Collection Date/Time: [id number] [facility] Results Received Date/Time: [id number] [facility] Reported Date/Time: [id number] Performed By: #### 1 1363, 1149T, 60850E, 59567, 8472 #### [facility] [address] [place] [address] Basic Metabolic Panelon 12-30 Calcium [Mass/Vol] 9.4 mg/dL Normal 8.2-10.2 [facility] Comment on above: Performed By: #### C BC, BMP #### [facility] [address] [place] [address] [place] Chloride [Moles/Vol] 103 mmol/L Normal 95-114 [facility] Comment on above: Performed By: #### C BC, BMP #### [facility] [address] CO2 [Moles/Vol] 24.6 mmol/L Normal 22.0-30.0 [facility] Comment on above: Performed By: #### C BC, BMP #### [facility] [address] Creatinine [Mass/Vol] 0.75 mg/dL Normal 0.44-1.03 [facility] Comment on above: Performed By: #### C BC, BMP #### [facility] [address] [place] [address] [place] Creatinine Clr Calc Pharmacy 123.87 [facility] Comment on above: Result Comment: PERF ORMED BY: [place] [address] PATHOLOGIST EDUCATION TRAINER BYRON SCOTT M.D. Performed By: #### C BC, BMP #### [facility] [address] [place] [address] [place] Estimated GFR ( Jodie > 60 [facility] Comment on above: Result Comment: GFR estimated reference range: According to KDOQI guidelines, <60 ml/min/1.73m2 is sufficient to diagnose a patient with chronic kidney disease. Performed By: #### C BC, BMP #### [facility] [address] [place] [address] [place] Estimated GFR (Non- Am > 60 [facility] Comment on above: Performed By: #### C BC, BMP #### [facility] [address] Glucose [Mass/Vol] 85 mg/dL Normal 70-100 [facility] Comment on above: Result Comment: [place] Glucose Reference Range is dependent on time and content of last meal. Glucose of more than 200 mg/dL in a nonstressed, ambulatory subject supports the diagnosis of Diabetes Mellitus. ADA recommended reference range Performed By: #### C BC, BMP #### [address] Potassium [Moles/Vol] 4.0 mmol/L Normal 3.5-5.1 [facility] Comment on above: Performed By: #### C BC, BMP #### [place] [address] [place] Sodium [Moles/Vol] 136 mmol/L Normal 136-146 [facility] Comment on above: Performed By: #### C BC, BMP #### [place] [id number] [place] Urea nitrogen [Mass/Vol] 8 mg/dL Low 9-23 [facility] Comment on above: Performed By: #### C BC, BMP #### [address] abdomen pelvis wo conon 0 01-22-2021 CT abdomen pelvis wo con [facility] [address] [place] [address] [place] [address] CT Scan Report Signed Patient: Magalie Fajardo MR#: [id number] 43 : 2000 Acct:[id number] Age/Sex: 20 / F ADM Date: 01/22/21 Loc: ER Room: Type: [facility] ER Attending Dr: Ordering Provider: Aranza Reynolds PA-C Date of Service: 01/22/21 CT/CT abdomen pelvis wo con: r/o kidney stone Copies to: Aranza Reynolds PA-C CT abdomen and pelvis 01/22/2021. CLINICAL DATA: Abdominal pain. TECHNIQUE: CT of the abdomen and pelvis was performed without contrast. Axial, sagittal, and coronal reconstructions were created and reviewed. This CT exam was performed using one or more of the following dose reduction techniques: Automated exposure control, adjustment of the mA and/or kV according to patient size, or use of iterative reconstruction technique. COMPARISON: None. FINDINGS: Images of the lower chest are unremarkable. The liver, spleen, pancreas, and both adrenal glands appear unremarkable. There are tiny nonobstructing calculi in both kidneys. No ureteral calculus is identified. No hydronephrosis or hydroureter is seen. The wall of the urinary bladder is mildly thickened. The uterus is retroverted. No acute intestinal abnormality is identified. The appendix appears unremarkable. No free intra-abdominal air is seen. There is a trace amount of free fluid in the pelvis. There is a mildly enlarged right inguinal lymph node with a short axis dimension of 1.4 cm. No abdominal wall abnormality is noted. CT/CT abdomen pelvis wo con IMPRESSION: 1. Bilateral nephrolithiasis. No ureteral calculus or obstructive uropathy. 2. Mildly thickened urinary bladder wall. 3. Retroverted uterus. 4. Trace free fluid in the pelvis. 5. Mildly enlarged right inguinal lymph node. Impression dictated by: Davonte Parker Jr., M.D.01/22/2021 3:14 PM Dictation Location: [place] [address] Transcribed By: [facility] 01/22/21 1514 Dictated By: Davonte Parker Jr, MD 01/22/21 1507 Signed By: 01/22/21 1514 [facility] Complete Blood Count Auto Di ffon 01-22-2021 Basophils (Bld) [#/Vol] 0.0 10*3/uL Normal 0.0-0.2 [facility] Comment on above: Result Comment: PERF ORMED BY: [place] [address] PATHOLOGIST EDUCATION TRAINER BYRON SCOTT M.D. Performed By: #### C BC, BMP #### [address] Basophils/100 WBC (Bld) 0.2 % Normal . [facility] Comment on above: Performed By: #### C BC, BMP #### [address] Eosinophils (Bld) [#/Vol] 0.0 10*3/uL Normal 0.0-0.45 [facility] Comment on above: Performed By: #### C BC, BMP #### [address] Eosinophils/100 WBC (Bld) 0.7 % Normal . [facility] Comment on above: Performed By: #### C BC, BMP #### [address] Erythrocyte distribution width (RBC) [Ratio] 13.2 % Normal 11.9-15.3 [facility] Comment on above: Performed By: #### C BC, BMP #### [address] Hematocrit (Bld) [Volume fraction] 40.9 % Normal 34.0-46.4 [facility] Comment on above: Performed By: #### C BC, BMP #### [place] [address] [place] Hemoglobin (Bld) [Mass/Vol] 13.7 g/dL Normal 11.8-15.4 [facility] Comment on above: Performed By: #### C BC, BMP #### [place] [address] [place] Lymphocytes (Bld) [#/Vol] 2.4 10*3/uL Normal 1.00-4.8 [facility] Comment on above: Performed By: #### C BC, BMP #### [address] Lymphocytes/100 WBC (Bld) 36.3 % Normal . [facility] Comment on above: Performed By: #### C BC, BMP #### [address] MCH (RBC) [Entitic mass] 29.8 pg Normal 24.7-34.3 [facility] Comment on above: Performed By: #### C BC, BMP #### [address] MCV (RBC) [Entitic vol] 88.6 fL Normal 80-100 [facility] Comment on above: Performed By: #### C BC, BMP #### [address] Mean Corpuscular HGB Conc 33.6 g/dL Normal 32.0-35.0 [facility] Comment on above: Performed By: #### C BC, BMP #### [address] Monocytes (Bld) [#/Vol] 0.4 10*3/uL Normal 0.0-0.8 [facility] Comment on above: Performed By: #### C BC, BMP #### [address] Monocytes/100 WBC (Bld) 6.5 % Normal . [facility] Comment on above: Performed By: #### C BC, BMP #### [address] Neutrophils (Bld) [#/Vol] 3.7 10*3/uL Normal 1.8-7.7 [facility] Comment on above: Performed By: #### C BC, BMP #### [address] Neutrophils/100 WBC (Bld) 56.3 % Normal . [facility] Comment on above: Performed By: #### C BC, BMP #### [place] [id number] [place] Nucleated RBC/100 WBC (Bld) [Ratio] 0.1 % Normal 0-0.5 [facility] Comment on above: Performed By: #### C GLENN, BMP #### [address] Platelet mean volume (Bld) [Entitic vol] 9.2 fL Normal 6.3-10.7 [facility] Comment on above: Performed By: #### C BC, BMP #### [place] [address] [place] Platelets (Bld) [#/Vol] 199 10*3/uL Normal 150-450 [facility] Comment on above: Performed By: #### C GLENN, BMP #### [address] RBC (Bld) [#/Vol] 4.62 10*6/uL Normal 3.60-5.00 [facility] Comment on above: Performed By: #### C GLENN, BMP #### [address] WBC (Bld) [#/Vol] 6.6 10*3/uL Normal 4.5-11.0 [facility] Comment on above: Performed By: #### C GLENN, BMP #### [place] [address] [place] Dipstick and Microscopicon 0 01-22-2021 Appearance (U) Clear Normal Clear [facility] Comment on above: Order Comment: Name Collection Type:: Voided Performed By: #### A DDONUAPLUS, UHCG, CUU #### [place] [address] [place] Bacteria,Urine 1+ High None Seen [facility] Comment on above: Order Comment: Name Collection Type:: Voided Performed By: #### A DDONUAPLUS, UHCG, CUU #### [place] [address] [place] Bilirubin,Urine Negative Normal Negative [facility] Comment on above: Order Comment: Name Collection Type:: Voided Performed By: #### A DDONUAPLUS, UHCG, CUU #### [facility] [address] [place] [address] [place] Color (U) Yellow Normal Yellow [facility] Comment on above: Order Comment: Name Collection Type:: Voided Performed By: #### A DDONUAPLUS, UHCG, CUU #### [place] [address] [place] Glucose Ql (U) Normal Normal Normal [facility] Comment on above: Order Comment: Name Collection Type:: Voided Performed By: #### A DDONUAPLUS, UHCG, CUU #### [place] [address] [place] Hyaline Casts,Urine 9-19 High 0-8 [facility] Comment on above: Order Comment: Name Collection Type:: Voided Performed By: #### A DDONUAPLUS, UHCG, CUU #### [place] [address] [place] Ketones Ql (U) Trace High Negative [facility] Comment on above: Order Comment: Name Collection Type:: Voided Performed By: #### A DDONUAPLUS, UHCG, CUU #### [address] Leukocyte esterase Test strip Ql (U) 2+ High Negative [facility] Comment on above: Order Comment: Name Collection Type:: Voided Performed By: #### A DDONUAPLUS, UHCG, CUU #### [place] [address] [place] Nitrite,Urine Negative Normal Negative [facility] Comment on above: Order Comment: Name Collection Type:: Voided Performed By: #### A DDONUAPLUS, UHCG, CUU #### [place] [address] [place] Occult Blood,Urine Negative Normal Negative [facility] Comment on above: Order Comment: Name Collection Type:: Voided Performed By: #### A DDONUAPLUS, UHCG, CUU #### [facility] [address] [place] [address] pH (U) 5.5 [pH] Normal 5.0-9.0 [facility] Comment on above: Order Comment: Name Collection Type:: Voided Performed By: #### A DDONUAPLUS, UHCG, CUU #### [address] Protein,Urine Trace High Negative [facility] Comment on above: Order Comment: Name Collection Type:: Voided Performed By: #### A DDONUAPLUS, UHCG, CUU #### [facility] [address] [place] [address] RBC LM.HPF (Urine sed) [#/Area] 0 /[HPF] Normal 0-4 [facility] Comment on above: Order Comment: Name Collection Type:: Voided Performed By: #### A DDONUAPLUS, UHCG, CUU #### [address] Specificy [place],Urine 1.029 Normal 1.001-1.030 [facility] Comment on above: Order Comment: Name Collection Type:: Voided Performed By: #### A DDONUAPLUS, UHCG, CUU #### [address] Squamous Epithelial Cell,Urine 5-9 High 0-2 [facility] Comment on above: Order Comment: Name Collection Type:: Voided Performed By: #### A DDONUAPLUS, UHCG, CUU #### [address] Urobilinogen,Urine Normal Normal Normal [facility] Comment on above: Order Comment: Name Collection Type:: Voided Performed By: #### A DDONUAPLUS, UHCG, CUU #### [address] WBC,Urine 20-49 High 0-4 [facility] Comment on above: Order Comment: Name Collection Type:: Voided Performed By: #### A DDONUAPLUS, UHCG, [facility] #### [facility] [address] [place] [id number] [facility] HCG,Urineon 01-22-2021 Beta HCG ( test) Ql (U) Negative Normal [facility] Comment on above: Order Comment: Name Collection Type:: Voided Result Comment: PERF ORMED BY: [place] [address] PATHOLOGIST EDUCATION TRAINER BYRON SCOTT M.D. Performed By: #### A DDONUAPLUS, [facility], [facility] #### [facility] [address] [place] [id number] [facility] Urine Cultureon 01-22-2021 Bacteria identified Cx Nom (U) ORGANISM: Escherichia coli (O:ESCCOL) [place] Count >100,000 Aerobic JOSE FRANCISCO Charge (NUC86) ----- SUSCEPTIBILITY ---- ORGANISM: O:ESCCOL ANTIBIOTIC INTERPRETATION JOSE FRANCISCO Amikacin S <16 Ampicillin R >16 Ampicillin/Sulbactam I 1616/8 Aztreonam S <4 Cefazolin S <2 Cefepime S <2 Ceftazidime S <1 Ceftazidime/Avibacta m S <8 Ceftriaxone S <1 Ciprofloxacin S <1 Ertapenem S <0.5 Gentamicin S <4 Levofloxacin S <2 Meropenem S <1 Nitrofurantoin S <32 Piperacillin/Tazobac aguayo S <16 Tetracycline S <4 Tigecycline S <2 Tobramycin S <4 Trimethoprim/Sulfame thoxazole S <2/38 S = SUSCEPTIBLE I = INTERMEDIATE R = RESISTANT BLANK = DATA NOT AVAILABLE, OR DRUG NOT ADVISABLE OR TESTED R* = RESISTANCE DUE TO EXTENDED SPECTRUM BETA-LACTAMASES ESBL = EXTENDED SPECTRUM BETA-LACTAMASE TFG = THYMIDINE-DEPENDENT STRAIN NELI = BETA-LACTAMASE POSITIVE IB = INDUCIBLE BETA-LACTAMASE. APPEARS IN PLACE OF 'S' WITH SPECIES KNOWN TO POSSESS INDUCIBLE BETA-LACTAMASES. POTENTIALLY THEY MAY BECOME RESISTANT TO ALL B-LACTAM DRUGS. PERFORMED BY: [facility] [address] [place] [address] PATHOLOGIST EDUCATION TRAINER BYRON SCOTT M.D. [facility] Comment on above: Performed By: #### [facility] #### [facility] [address] [place] [id number] [facility] Vital Signs Date Time Vital Sign Value Performing Clinician Eli merino 10-22-2021 11:57-0400 Diastolic blood pressure 68 mm[Hg] Nkechi Whitmore PRESSURE WELDER - CNM Work Phone: [facility] [employer] [facility] 10-22-2021 11:57-0400 Heart rate 80 /min Nkechi Whitmore PRESSURE WELDER - CNM Work Phone: [facility] [employer] [facility] 10-22-2021 11:57-0400 Respiratory rate 16 /min Nkechi Whitmore PRESSURE WELDER - CNM Work Phone: [facility] 10-22-2021 11:57-0400 Systolic blood pressure 127 mm[Hg] Nkechi Whitmore PRESSURE WELDER - CNM Work Phone: [facility] [employer] [facility] 10-22-2021 10:16-0400 Body height 170.2 cm Nkechi Whitmore APRN - CNM Work Phone: [facility] [employer] [facility] 10-22-2021 10:16-0400 Body mass index (BMI) [Ratio] 29.76 kg/m2 Nkechi Whitmore APRN - CNM Work Phone: [facility] [employer] [facility] 10-22-2021 10:16-0400 Body weight 86.18 kg Nkechi Whitmore APRN - CNM Work Phone: [facility] [employer] [facility] 10-22-2021 10:10-0400 Body temperature 98.4 [degF] Nkechi Whitmore APRN - CNM Work Phone: [employer] Encounters Encounter Date Encounter Type Care Provider Facility Start: 05-28-2023 End: 05-29-2023 ambulatory NKECHINohemy WHITMORE Not Available Start: 05-21-2023 End: 05-22-2023 ambulatory NKECHI L FLORO Not Available Start: 05-14-2023 End: 05-15-2023 ambulatory NKECHI L FLORO Not Available Start: 05-07-2023 End: 05-08-2023 ambulatory NKECHI L FLORO Not Available Start: 05-02-2023 End: 05-03-2023 ambulatory NKECHI L FLORO Not Available Start: 04-17-2023 End: 04-18-2023 ambulatory NKECHI L FLORO Not Available Start: 04-15-2023 [facility] Start: 04-04-2023 End: 04-05-2023 ambulatory NKECHI L FLORO Not Available Start: 03-07-2023 End: 03-08-2023 ambulatory NKECHI L FLORO Not Available Start: 07-13-2022 Letter encounter Jan adina Start: 10-22-2021 End: 10-22-2021 ambulatory NKECHI WHITMORE [facility] Start: 10-22-2021 End: 10-22-2021 Subsequent hospital visit by physician Nkechi Murray CNM Work Phone: [facility] Labor [facility] Delivery Start: 07-18-2021 Letter encounter [place] holden Start: 04-19-2018 End: 04-20-2018 Patient encounter procedure Bala Abeberavi Facility:[id number] Start: 04-16-2018 End: 04-17-2018 Patient encounter procedure Bala Abeberavi Facility:CD:[id number] Procedures Date Procedure Procedure Detail Performing Clinician Start: 10-22-2021 Urinalysis microscopic only Nkechi Lambertmatt Murray CNM Work Phone: Start: 10-22-2021 Urnls dip stick/tabl et rgnt auto w/o microscopy Nkechimoe Lambertmatt Murray CNM Work Phone: Start: 06-07-2021 Antibody rubella Comment on above: Order Comment: [employer] Testing performed at: [facility], [employer] [facility], [address], [address] [facility], [place], [address], School Child Care Attendant: Amado Horner MD [facility] Date/Time: [id number] [facility] Results Received Date/Time: [id number] [facility] Reported Date/Time: [id number] Result Comment: Inde x Interpretation ----- <0.90 Not consistent with immunity 0.90-0.99 Equivocal > or = 1.00 Consistent with immunity The presence of rubella IgG antibody suggests immunization or past or current infection with rubella virus. Performed By: #### 1 1363, 1149T, 66318F, 85284, 8472 #### [facility] [address] [place] [address] Plan of Treatment Date Care Activity Detail Author Start: 2050 Shingles (RZV) Vacci ne (1 of 2) Shingles (RZV) Vaccine (1 of 2) [facility] Start: 12-29-2022 Influenza vaccination Influenza Vacc ine (#1) [facility] Start: 01-28-2022 Influenza vaccination Influenza Vacc ine (#1) [facility] Start: 12-29-2021 Influenza vaccination Flu vacc ine (Season Ended) [facility] Start: 2021 Screening for malign ant neoplasm of cervix Pap Smear [facility] Start: 11-28-2020 Influenza vaccination Influenza Vacc ine (#1) [facility] Start: 2019 DTaP/Tdap/Td vaccine (1 - Tdap) DTaP/Tdap/Td vaccine (1 - Tdap) [facility] Start: 2018 [facility] C [facility] Start: 2018 Screening for Chlamy cruz trachomatis STI Screening (Age 18-24) [facility] Start: 2018 STI Screening (Age 18-24) STI Screening (Age 18-24) [facility] Start: 2018 Tetanus + diphtheria + acellular pertussis vaccine (product) Tdap Booster [facility] Start: 2016 Meningococcal B (Bexsero,OMV) Vaccine (Optional,16-23 years) Meningococcal B (Bexsero,OMV) Vaccine (Optional,16-23 years) [facility] Start: 2016 Meningococcal B (Bexsero,OMV) Vaccine (Optional,16-23 years) (#1) Meningococcal B (Bexsero,OMV) Vaccine (Optional,16-23 years) (#1) [facility] Start: 2016 Screening for Chlamy cruz trachomatis Chlamydia screen [facility] Start: 2015 HIV screening [facility] Start: 2012 Depression Screen Depression Screen [facility] Start: 2011 HPV vaccine (1 - 2-d ose series) HPV vaccine (1 - 2-dose series) [facility] Start: 2011 Vaccination for bk n papillomavirus [facility] Start: 2005 COVID-19 Vaccine (1) COVID-19 Vaccin e (1) [facility] Start: 2001 Varicella vaccine (1 of 2 - 2-dose childhood series) Varicella vaccine (1 of 2 - 2-dose childhood series) [facility] Start: 2000 COVID-19 Vaccine (#1) COVID-19 Vacci ne (#1) [facility] End: 10-22-2021 Bacteria identified in Urine by Culture [facility] [employer] Phone: Comment on above: One Time for 1 Occur rences starting 10/22/2021 until 10/22/2021 Once for 1 Occurrenc es starting 10/22/2021 until 10/22/2021 Nonrebreather mask oxygen Nonrebreather mask oxygen Respiratory Care Routine As directed - RT (PRN) until discontinued starting 10/22/2021 [facility]: Comment on above: As directed - RT (MT N) until discontinued starting 10/22/2021 End: 10-22-2021 SVE SVE Point of Care Testing Routine One Time for 1 Occurrences starting 10/22/2021 until 10/22/2021 [facility] Phone: Comment on above: One Time for 1 Occur rences starting 10/22/2021 until 10/22/2021 Immunizations Immunization Date Immunization Notes Care Provider Oren gooden 10-30-2019 tuberculin skin test ; purified protein derivative solution, intradermal [facility] Payers Date Payer Category Payer Medicaid [id number] 2021 Private Health Insurance [id number] 2021 Unknown [id number] 2008 Private Health Insurance [employer] - HMO/PPO/POS OPEN CHOICE PPO [id number] 2008-Present [employer] [facility] [address] [place] [address] PPO [id number] 2000 Unknown [id number] 73 2000 Unknown [id number] 259 2000 Unknown [id number] 259 2000 Unknown [id number] 259 2000 Unknown [id number] 259 2000 Unknown [id number] 259 2000 Unknown [id number] 259 2000 Unknown [id number] 259 2000 Unknown [id number] 259 2000 Unknown [id number] 259 Social History Date Type Detail Facility Tobacco smoking status [facility] Tobacco smoking consumption unknown [facility] Start: 2000 Sex Assigned At Not on file M [facility] Start: 04-25-2013 Tobacco smoking status [facility] Never smoked tobacco [employer] Phone: Start: 04-25-2013 Tobacco use and exposure Smokeless tobacco non-user [employer] Phone: Start: 10-22-2021 Alcohol intake Current non-dr clerk guide of alcohol (finding) [employer] Phone: Start: 04-14-2021 [employer] Phone: Start: 10-12-2021 End: 10-22-2021 Exposure to SARS-CoV-2 (event) Not sure [employer] Phone: Gender identity Not on file [facility] Clinical Note 11-01-2021 Note Date & Type Note Facility 11-01-2021 Note FINDINGS: Comparison made with prior ultrasound evaluation August 22, 2021, August 05, 2021. A single, live intrauterine is present with normal cardiac rate of 158 beats per minute. Normal activity and amniotic fluid volume. Amniotic fluid index is 13 cm. Morphology is grossly normal. The cervix is long and closed, 3.3 cm. The placenta is posterior, fundal. The current sonographic age is 31 weeks and 5 days, based on the following measurements: BPD 7.9 cm (31 weeks, 5 days) Head Circumference 29.0 cm (31 weeks, 6 days) Abdominal Circumference 25.1 cm (29 weeks, 2 days) Femur Length 6.6 cm (34 weeks, 1 day) Presentation Cephalic Placenta Posterior Fundal Grade I Weight (g) by [id number] % * These measurements result in an estimated date of delivery of December 29, 2021. The current estimated weight is 1738 grams (3 pounds, 13 ounces). IMPRESSION: 1. Single, live intrauterine , current sonographic age of 31 weeks and 5 days, with an estimated date of delivery of December 29, 2021 (prior [place] January 03, 2022, January 06, 2022). 2, Current estimated weight 1738 grams (3 pounds, 13 ounces) * Estimated Weight (g) by Percentile is based upon an accurate estimated age based on last menstrual period. Report reported and signed by J Luis Jama on 11/01/2021 1026 [facility] Urgent Care Technician History of Present illness Narrative 10-22-2021 Jane Sullivan RN - 10/22/2021 1:03 PM Yaz Sullivan RN - 10/22/2021 12:51 PM Yaz Sullivan RN - 10/22/2021 11:46 AM Yaz Sullivan RN - 10/22/2021 11:27 AM EDT Note Date & Type Note Facility 10-22-2021 History of Present illness Narrative Patient off unit in stable condition. Departure Mode: with family member. Mobility at Departure: ambulatory Discharged to: private residence Time of Discharge: 13:03 Obstetrical outpatient discharge instructions explained to pt, pt v.u. Stuart Whitmore CNM calls in to see if patient needs nausea medicine. Pt declines nausea medicine, states I think it's just because I haven't ate today. CNM states pt can have a regular diet. Menu given. CNM states patient can be off EFM with reactive NST. Pt to be discharged after liter of IV fluid complete. Stuart Whitmore CNM talks to patient regarding urine results on room phone. Pt arrives with complaints of right side back pain for a long time , states it's constant but got worse last night, states I couldn't go to sleep for a long time and I could hardly sit down. Pt points to lower right abdomen, near umbilicus, that comes and goes for last two days - states it started at top of abdomen and went across but now has moved to lower abdomen. Pt reports burning when urinating and urinary frequency. Pt reports + movement. Pt denies headache, blurred vision or floaters. Pt denies problems thus far during . Urine specimen collected. EFM on and explained, pt v.u. documented in this encounter [facility] Phone: Evaluation note Note Date & Type Note Facility Evaluation note Diagnosis Abdominal pain affecting , antepartum- Primary documented in this encounter [facility] [employer] Phone: Hospital Discharge instructions Instructions Note Date & Type Note Facility Hospital Discharge instructions Jane Sullivan RN - 10/22/[address] Mary Beth Clemente CN Dr. Yasmine Sánchez CN [address] [facility] [address] [facility] [address] Yasmine KAPOOR [facility] CN [address] [facility] [id number] [phone] Lisa Whitmore, MSN, PRESSURE WELDER, CNM [facility] [address] [facility] [address] [address] Sanders [address] [facility] [address] Kassy Henderson CN [address] [place] [address] [place] [address] Ileana Mars CN [address] [place] [address] [place] [address] [place] [address] [phone] ACTIVITY LIMITATIONS: (x )Up and about as desired and tolerated ( )Up to bathroom only ( x )Lay on either side ( x )Avoid heavy lifting or exercise ( x )No sex until V.Floro CNM instructs that you can resume ( )No nipple stimulation ( )Complet bedrest ( )Avoid using stairs (x )Increase fluids DRINK AT LEAST eight-8oz. Glasses of water daily. Partner needs to be treated also for Trichomonas (sexually transmitted infection) Call your Doctor if: ( )Contractions are every 5 minutes apart (from start of one to the start of the next contraction) lasting 60 seconds for at least 1 hour, strong enough you can not walk or talk through the contraction and regular. ( x )Bag of water breaks (x )Vaginal bleeding ( x )Unusual pain occurs (x )Decreased movement (x ) labor: If you have 4 contractions in an hour Keep your scheduled follow up appointment. IN CASE OF EMERGENCY CONTACT LABOR AND DELIVERY . 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 ACP-Power of Tile Power Shear Operator Latest Code Status on File Code Status Date Activated Date Inactivated Comments Full Code 10/22/2021 10:14 AM Additional Source Comments INFORMATION SOURCE (unrecogn ized section and content) DATE CREATED AUTHOR 04/25/2018 Phoenix Rosa [facility] DATE CREATED AUTHOR AUTHOR'S ORGANIZ ATION 05/24/2021 [facility] DATE CREATED AUTHOR AUTHOR'S ORGANIZ ATION 10/23/2021 Itaalfie Constantine [facility] DATE CREATED AUTHOR AUTHOR'S ORGANIZ ATION 11/01/2021 [facility] dical Specialist DATE CREATED AUTHOR AUTHOR'S ORGANIZ ATION 06/02/2023 [facility] dical Specialists EPIC Reason for Visit (unrecogniz ed section and content) Reason Comments Abdominal Pain Scheduled Active and Recently Administ ered Medications (unrecognized section and content) Medication Order 10/20/2021 10/21/2021 10/22/2021 lactated ringers bolus (COMPLETED) 500 mL, IntraVENous, at 967.7 mL/hr, Administer over 31 Minutes, ONCE, On 10/22/21 at 1145, For 1 dose 1126 (New Bag - Prov ider: Jane Sullivan, MARIA ELENA)1157 (Stopped - Provider: Jane Sullivan, MARIA ELENA) metroNIDAZOLE (FLAGYL) tablet 2,000 mg (COMPLETED) 2,000 mg, Oral, ONCE, 1 dose, On 10/22/21 at 1200, Antimicrobial Indications: STD infection 1146 (Given - Provid er: Jane Sullivan RN) Continuous Medication Order 10/20/2021 10/21/2021 10/22/2021 lactated ringers infusion IntraVENous, at 200 mL/hr, CONTINUOUS, Starting on 10/22/21 at 1215, After bolus given 1158 (Rate/Dose [place] ge - Provider: Jane Sullivan RN)1247 (Stopped - Provider: Jane Sullivan RN) Care Teams (unrecognized sec tion and content) Machine Repairman Relationship Specialty Start Date End Date Vita Small MD [address] [place] [address] PCP - General 04/25/13 FOR RECORDS PERTAINING TO PATIENTS WHO ARE OR HAVE BEEN ENROLLED IN A CHEMICAL DEPENDENCY/SUBSTANCEABUSE PROGRAM, SOME INFORMATION MAY BE OMITTED. This clinical summary was aggregated from multiple sources. Caution should be exercised in using it in the provision of clinical care. This summary normalizes information from multiple sources, and as a consequence, information in this document may materially change the coding, format and clinical context of patient data. In addition, data may be omitted in some cases. CLINICAL DECISIONS SHOULD BE BASED ON THE PRIMARY CLINICAL RECORDS. [facility] [place] [employer] [facility]. provides no warranty or guarantee of the accuracy or completeness of information in this document.
[2023-06-04] MEDS: LACTATED RINGER'S SOLUTION 1,000 ML 125 ML IV ×3 (05:28→11:40)
[2023-06-04 05:35] LABS: Hematocrit 31.1 % (36.0-48.0); Hemoglobin 9.8 g/dL (12.0-16.0); Mean Corpuscular HGB Conc 31.5 g/dL (29.9-35.2); Mean Corpuscular Hemoglobin 25.9 pg (26.7-34.0); Mean Corpuscular Volume 82.1 fL (81.0-99.0); Mean Platelet Volume 11.8 fL (9.5-13.5); Platelet Count 253 10^3/uL (150-450); Red Blood Count 3.79 10^6/uL (4.20-5.40); Red Cell Distribution Width 14.1 % (11.0-15.0); White Blood Count 11.6 10^3/uL (4.0-11.0)
[2023-06-04 05:54] LABS: Amphetamine Screen Urine NEGATIVE (NEGATIVE); Barbiturates Screen Urine NEGATIVE (NEGATIVE); Benzodiazepines Screen Urine NEGATIVE (NEGATIVE); Buprenorphine Screen Urine NEGATIVE (NEGATIVE); Cannabinoid Screen Urine NEGATIVE (NEGATIVE); Cocaine Screen Urine NEGATIVE (NEGATIVE); Methadone Screen Urine NEGATIVE (NEGATIVE); Methamphetamines Screen Urine NEGATIVE (NEGATIVE); Opiate Screen Urine NEGATIVE (NEGATIVE); Oxycodone Screen Urine NEGATIVE (NEGATIVE); Phencyclidine Screen Urine NEGATIVE (NEGATIVE); Tricyclic Antidepressant Urine NEGATIVE (NEGATIVE)
[2023-06-04] MEDS: OXYTOCIN/0.9 % SODIUM CHLORIDE 10 UNITS/500 ML PLAST..BAG 6 UNIT IV (06:09)
--- NOTE | 2023-06-04 09:49 | PM.OBHP ---
OB - H&P: HPI History of Present Illness Chief complaint: INDUCTION : 2 Para: 1 Gestational age based on last menstrual period: 39.0 Indications for induction: other (elective ) History of Present Dating criteria: LMP confirmed by 1st trimester US care: none Ultrasounds: normal 1st trimester US and normal mid trimester US complications comment: history of HSV, started suppression meds at 36 weeks Medical complications OB: none Labs Blood type: A (-) negative Rubella: immune RPR/VDLR: nonreactive GBS status: negative HBsAG: negative Review of Systems ROS Status of ROS: 10 or more systems reviewed and unremarkable except as noted in history and below [facility] Medical History (Updated 06/04/23 @ 09:58 by ILSA FOSTER APRN, MALINI) 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 - Herpesviral infection, unspecified (ICD-10) Meds Home Medications and Allergies Home Medications Medication Instructions Recorded Confirmed Type docusate sodium 100 mg capsule mg PO 06/04/23 History (Stool Softener) ferrous sulfate 325 mg (65 mg mg PO 06/04/23 History iron) tablet,delayed release valacyclovir 500 mg tablet mg 06/04/23 History Allergies Allergy/AdvReac Type Severity Reaction Status Date / Time Penicillins Allergy Severe Hives Verified 06/04/23 05:54 Exam Constitutional Vital Signs, click to edit/add: Last Vital Signs Temp 99.1 F 06/04/23 09:46 Pulse 76 06/04/23 09:37 Resp 16 06/04/23 09:46 BP 121/69 06/04/23 09:37 O2 Del Method Room Air 06/04/23 05:00 Documenting provider has reviewed patient's vital signs: yes Common normals: no apparent distress Orientation/consciousness: Yes awake, Yes oriented to person, Yes oriented to place and Yes oriented to time HENMT Common normals: normocephalic Eye Common normals: EOMs intact bilaterally Neck & C-Spine Common normals: full ROM Lymph Lymphatic: no lymphadenopathy noted Chest Common normals: inspection of chest normal Respiratory Common normals: normal respiratory effort Cardio Common normals: regular rate and regular rhythm Rate: regular rate Rhythm: regular rhythm GI Inspection: normal to inspection Auscultation: normoactive bowel sounds Common normals: no CVA tenderness Back & Pelvis Common normals: no CVA tenderness Extremity Common normals: normal to inspection General: normal exam except as noted Neuro Common normals: oriented x3 and moves all extremities Sensorium/orientation: awake, alert, oriented to person, oriented to place and oriented to time Psych Common normals: mental status grossly normal, thought process normal and cooperative Attitude: calm Speech: normal speech Results Labs Labs: Short CBC 06/04/23 Range/Units 05:05 WBC 11.6 H (4.0-11.0) 10^3/uL Hgb 9.8 L (12.0-16.0) g/dL Hct 31.1 L (36.0-48.0) % Plt Count 253 (150-450) 10^3/uL OB - A/P Assessment and Plan (1) Term :
--- NOTE | 2023-06-04 10:11 | PM.EN ---
Event Note Event Note: to room to assess patient. cervix is /-3 patient unable to tolerate AROM attempt. Patient is moving up towards the head of the bed. She does desire an epidural, offered her that at this time to make her more comfortable and then would attempt AROM. Patient agrees. Patient has history of HSV 2 and upon exam, i do not see any lesions, redness, of signs of outbreak. Patient also denies outbreak symptoms, pain or any recent outbreak.
[2023-06-04] MEDS: ROPIVACAINE HCL/PF 400 MG/200 ML PREMIX 6 MG EPIDURAL (11:23)
--- NOTE | 2023-06-04 12:02 | PM.EN ---
Event Note Event Note: 11:54 AM SVE 1-2/70/-2 and AROM performed with sterile amnihook, with return of moderate amount of clear, odorless fluid. heart tones stable, before , during and after ROM. Patient tolerated procedure well and has good relief of pain after receiving the epidural.
[2023-06-04] MEDS: ACETAMINOPHEN 325 MG TABLET 650 MG PO (12:31)
[2023-06-04] MEDS: OXYTOCIN/0.9 % SODIUM CHLORIDE 20 UNITS/1,000 ML PLAST..BAG 125 UNIT IV (18:21)
--- NOTE | 2023-06-04 18:31 | PM.OBPRCVD ---
Procedure Procedure: with 1st degree repair and bilateral periurethral repair . Straight cath performed after repair complete with return of large amount of clear, yellow urine events: Labor Augmentation Intrapartal events: None Induction method: per pitocin protocol Delivery augmentation: rupture of membranes Delivery monitor: external FHT and external uterine Route of delivery: Episiotomy Description: none Laceration description: perineal - 1st degree (with bilateral periurethral repair ) Delivery repair: Vicryl Estimated blood loss (mL): 200 Anesthesia type: Epidural Disposition: same day Infant Delivery date: 06/04/23 Gender: female presentation: vertex Placental delivery description: Spontaneous cord description: 3 Vessels heart rate - 1 minute: 100 bpm or Greater respiratory effort - 1 minute: Spontaneous/Strong Cry muscle tone - 1 minute: Active Movement reflex response - 1 minute: Prompt Response color - 1 minute: Bluish Hands or Feet total score - 1 minute: 9 heart rate - 5 minute: 100 bpm or Greater respiratory effort - 5 minute: Spontaneous/Strong Cry muscle tone - 5 minute: Active Movement reflex response - 5 minute: Prompt Response color - 5 minute: Bluish Hands or Feet total score - 5 minute: 9
[2023-06-04] MEDS: IBUPROFEN 400 MG TABLET 800 MG PO (20:18)
[2023-06-04] MEDS: BENZOCAINE/MENTHOL 85 GRAM SPRAY BOTTLE 1 APPLIC TOPICAL (22:35)
[2023-06-04] MEDS: GLYCERIN/WITCH HAZEL PADS 1 PAD TOPICAL (22:36)
[2023-06-05] VITALS (10 sets, daily range): BP systolic 116–125; BP diastolic 57–79; PULSE 71–75; RESP 16; TEMP 36.8–37.1
[2023-06-05] MEDS: IBUPROFEN 400 MG TABLET 800 MG PO ×2 (04:13→12:02)
--- NOTE | 2023-06-05 05:56 | PM.OBPN ---
OB - PN: Subj Subjective Patient comments: no complaints Strandquist status: doing well Exam Constitutional Vital Signs, click to edit/add: Last Vital Signs Temp 98.7 F 06/05/23 04:25 Pulse 73 06/05/23 04:25 Resp 16 06/05/23 04:25 BP 120/75 06/05/23 04:25 O2 Del Method Room Air 06/05/23 04:25 Documenting provider has reviewed patient's vital signs: yes Common normals: no apparent distress Respiratory Common normals: normal respiratory effort and clear to auscultation bilaterally Cardio Common normals: regular rate and regular rhythm GI Common normals: Normal to inspection, nondistended, normoactive bowel sounds present Extremity Common normals: no calf tenderness OB - PN: A/P Assessment and Plan (1) Term : Plan - Vaginal Delivery day: 1 Plan: routine care Time Spent with Patient Time: Total time spent is greater than 50% in coordination of care (as documented) at patient's floor/unit and/or counseling patient: Total time spent with greater than 50% in coordination of care (as documented) at patient's floor/unit and/or counseling patient: less than 15 minutes
[2023-06-05 06:01] LABS: Basophils Percent Auto 0.2 % (0.2-2.0); Eosinophils Absolute Auto 0.1 10^3/uL (0.0-0.7); Eosinophils Percent Auto 0.5 % (0.9-7.0); Hematocrit 27.9 % (36.0-48.0); Hemoglobin 8.7 g/dL (12.0-16.0); Immature Granulocytes Abs Auto 0.06 10^3/uL (0.00-0.03); Immature Granulocytes Pct Auto 0.5 % (0.0-0.5); Lymphocytes Absolute Auto 2.8 10^3/uL (1.2-3.8); Lymphocytes Percent Auto 21.5 % (20.5-60.0); Mean Corpuscular HGB Conc 31.2 g/dL (29.9-35.2); Mean Corpuscular Hemoglobin 25.7 pg (26.7-34.0); Mean Corpuscular Volume 82.5 fL (81.0-99.0); Mean Platelet Volume 11.4 fL (9.5-13.5); Monocytes Absolute Auto 0.9 10^3/uL (0.3-0.8); Monocytes Percent Auto 6.6 % (1.7-12.0); Neutrophils Absolute Auto 9.2 10^3/uL (1.4-6.5); Neutrophils Percent Auto 70.7 % (43.0-75.0); Platelet Count 224 10^3/uL (150-450); Red Blood Count 3.38 10^6/uL (4.20-5.40); Red Cell Distribution Width 14.4 % (11.0-15.0); White Blood Count 13.1 10^3/uL (4.0-11.0)
[2023-06-05] MEDS: FERROUS SULFATE 325 MG TABLET PO (08:21)
[2023-06-05] MEDS: DOCUSATE SODIUM 100 MG CAPSULE PO (08:21)
[2023-06-05] MEDS: RHO(D) IMMUNE GLOBULIN 1,500 UNIT SYRINGE 1500 UNIT IM (15:14)
--- NOTE | 2023-06-05 15:37 | PC.NURSE ---
First experience with . States I think it is going well, baby just nursed for length of time and is asleep in crib at bedside. Mom denies pain with latch at this time. Aware to seek assistance as needed. Follow up visit scheduled for tomorrow if plans discharge at 24 hours. Verbalized understanding.
--- NOTE | 2023-06-05 19:23 | W.PC.ACHO ---
Registration Status: ADM IN Primary Language: Djiboutian Preferred Language: Djiboutian Active Medications Generic Name Dose Route Start Last Admin Trade Name Freq PRN Reason Stop Dose Admin Acetaminophen 650 mg 06/04/23 09:51 06/04/23 12:31 Acetaminophen 325 Mg Tablet PO 650 mg Q6H PRN Administration temperature Al Hydroxide/Mg Hydroxide 2,400 mg 06/04/23 18:34 Magnesium Hydroxide 2,400 Mg/10 Ml Oral.Susp PO Q6H PRN Dyspepsia Benzocaine/Menthol 1 applic 06/04/23 18:34 06/04/23 22:35 Benzocaine/Menthol 85 Gram [place] Bottle TOPICAL 1 applic Q2H PRN Administration Pain Diphtheria/Pertussis/Tetanus Vacc 0.5 ml 06/06/23 09:00 Adacel Diph,Pertuss(Acell),Tet Vac/Pf 0.5 Ml Adult Syringe IM 06/06/23 09:01 .ONCE ONE Docusate Sodium 100 mg 06/05/23 09:00 06/05/23 08:21 Docusate Sodium 100 Mg Capsule PO 100 mg BID LO Administration Ferrous Sulfate 325 mg 06/05/23 09:00 06/05/23 08:21 Ferrous Sulfate 325 Mg Tablet PO 325 mg BID LO Administration Lactated Ringer's 1,000 mls @ 125 mls/hr 06/04/23 05:00 06/04/23 18:21 Lactated Ringers IV Infused .Q8H LO Infusion Ibuprofen 800 mg 06/04/23 20:00 06/05/23 12:02 Ibuprofen 400 Mg Tablet PO 800 mg Q8H LO Administration Measles/Mumps/Rubella Vaccine Live 0.5 ml 06/06/23 09:00 Measles,Mumps,Rubella Vacc/Pf 0.5 Ml Vial SQ 06/06/23 09:01 .ONCE ONE Ondansetron HCl 4 mg 06/04/23 04:40 Ondansetron Pf 4 Mg/2 Ml Vial IV Q6H PRN Nausea And Vomiting Ondansetron HCl 4 mg 06/04/23 04:40 Ondansetron 4 Mg Rapdis Tablet SL Q6H PRN Nausea And Vomiting Senna 17.2 mg 06/04/23 20:00 Sennosides 8.6 Mg Tablet PO QHS PRN Constipation Simethicone 80 mg 06/04/23 18:34 Simethicone 80 Mg Tab.Chew PO QID PRN Abdominal Distention Temazepam 15 mg 06/04/23 18:34 Temazepam 15 Mg Capsule PO QHS PRN Sleep Witch Whitney/Glycerin 1 pad 06/04/23 18:34 06/04/23 22:36 Glycerin/Witch Whitney Pads TOPICAL 1 pad Q2H PRN Administration Pain Diet Category Date Time Status Regular Consistency Diet Diet 06/04/23 18:34 Active Respiratory Oxygen Delivery Method Room Air Oxygen Delivery Method Room Air Oxygen Delivery Method Room Air Oxygen Delivery Method Room Air Oxygen Delivery Method Room Air Oxygen Delivery Method Room Air Bowels Bowel Pattern No Bowel Movement Bowel Pattern No Bowel Movement
--- NOTE | 2023-06-05 21:12 | PC.NURSE ---
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
== END 2023-06-05 21:16 | disposition home or self-care (01) | DRG 560 ==
PROVIDERS: Admitting Provider Midwife; PCP Midwife; Visit Provider Midwife
DX: O98.32 Other infections with a predominantly sexual mode of transmission complicating childbirth (principal); A60.00 Herpesviral infection of urogenital system, unspecified; O70.0 First degree perineal laceration during delivery; Z3A.39 39 weeks gestation of pregnancy; Z37.0 Single live birth
CPT/HCPCS: 36415; 59050; 59410; 80307; 85025; 85027; 85461; 86850; 86870; 86900; 86901; 96365; 96366; 96368; 96372; 99999; J2790; J2795

== ENCOUNTER 2024-12-31 00:13 | Emergency (ER) | payer OTHER, SELFPAY ==
--- OUTSIDE RECORDS SUMMARY | 2024-12-31 00:21 | XMS_ITS | CCD ---
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 Name Role Phone Bala Wick Unavailable Unavailable NONE, XXXX Unavailable Unavailable Shamika Bala Unavailable Unavailable NONE, XXXX Unavailable Unavailable Unavailable Primary Care Provider Rajiv Ryder MD Primary Care Provider ILSA WHITMORE Admitting Unavailable ILSA WHITMORE Attending Unavailable JARED RAJIV F Primary Care Unavailable Unavailable Primary Care Provider Rajiv Ryder MD Primary Care Provider Blas ALLOPATHIC DOCTORDamaris Unavailable [phone] Blas ALLOPATHIC DOCTORDamaris Unavailable [phone] Unavailable Primary Care Provider UnavailRAJIV Díaz Attending Unavailable ILSA WHITMORE L Attending Unavailable ILSA WHITMORE L Attending Unavailable JARED, RAJIV F Primary Care Unavailable LEVI, LINO Referring Unavailable JARED, RAJIV F Primary Care Unavailable JARED, RAJIV F Referring Unavailable JARED, RAJIV F Primary Care Unavailable LEVI, RAHI Referring Unavailable JARED, RAJIV F Referring Unavailable JARED, RAJIV F Primary Care Unavailable JARED, RAJIV F Referring Unavailable JARED, RAJIV F Primary Care Unavailable Allergies Allergy Classification Reported Allergen(s) Allergy Type Date of Onset Reaction(s) Facility (2 sources) Amoxicillin; Translations: [AMOXICILLIN] Drug Allergy 2 Radiate Media (3 sources) Penicillins Propensity to adverse reactions to drug 3 [facility]edema, [facility] (11 sources) Penicillin G Drug Allergy 3 Hives [facility] Medications Current Medications Medication Drug Class(es) Dates Sig (Normalized) Sig (Original) acetaminophen 500 mg oral tablet (1 source) take 1 tablet by mouth every six hours as needed for pain acetaminophen (TYLENOL) 500 MG tablet Take 500 mg by mouth every 6 hours as needed for Pain 0 Active aspirin 81 mg delayed release oral tablet (2 sources) Platelet Aggregation Inhibitor, Nonsteroidal Anti-inflammatory Drug take 1 tablet by mouth once daily aspirin 81 MG EC tablet Take 81 mg by mouth Daily Active calcium chloride 0.0014 meq/ml / potassium chloride 0.004 meq/ml / sodium chloride 0.103 meq/ml / sodium lactate 0.028 meq/ml injectable solution (2 sources) Start: 10-22-2021 End: 10-22-2021 lactated ringers infusion cephalexin 500 mg oral capsule (2 sources) Cephalosporin Antibacterial Start: 05-07-2023 take 1 capsule by mouth in the morning cephalexin (Keflex) 500 MG capsule Take 500 mg by mouth in the morning and 500 mg before bedtime. 0 05/07/2023 Active docusate sodium 100 mg oral capsule (2 sources) Start: 2023 take 1 capsule by mouth in the morning docusate sodium (Colace) 100 MG capsule Indications: Anemia during Take 1 capsule (100 mg) by mouth in the morning and 1 capsule (100 mg) before bedtime. 60 capsule 4 2023 Active doxycycline monohydrate 100 mg oral tablet (2 sources) Tetracycline-class Drug take 1 tablet by mouth once daily doxycycline (Adoxa) 100 MG tablet Take 100 mg by mouth Daily Take with a full glass of water and do not lie down for at least 30 minutes after Active Enoxaparin (2 sources) Low Molecular Weight Heparin ENOXAPARIN SODIUM IJ Inject 0.4 mL as directed 1 (one) time each day Active estradiol 2 mg oral tablet (4 sources) Estrogen take 1 tablet by mouth once daily estradiol (Estrace) 2 MG tablet Take 2 mg by mouth Daily Active estradiol (Vivel le-DOT) 0.025 MG/24HR Place 1 patch on the skin 2 (two) times a week Active ethinyl estradiol 0.035 mg / norgestimate 0.25 mg oral tablet (5 sources) Progestin, Estrogen Start: 02-05-2024 take 1 tablet by mouth once daily norgestimate-ethinyl estradiol (Sprintec 28) 0.25-35 MG-MCG tablet Indications: Unwanted fertility Take 1 tablet by mouth Daily 90 tablet 3 02/05/2024 Active etodolac 400 mg oral tablet (1 source) Nonsteroidal Anti-inflammatory Drug Start: 07-22-2018 take 1 tablet by mouth twice daily etodolac (LODINE) 400 MG tablet Take 1 tablet by mouth 2 times daily 30 tablet 0 07/22/2018 Active ferrous sulfate 325 mg delayed release oral tablet (2 sources) Start: 2023 take 1 tablet by mouth in the morning ferrous sulfate (Fe Tabs) 325 (65 Fe) MG EC tablet Indications: Anemia during Take 1 tablet (325 mg) by mouth in the morning and 1 tablet (325 mg) in the evening. Take with meals. Do not crush, chew, or split.. 60 tablet 11 2023 Active fluocinonide 0.0005 mg/mg topical ointment (2 sources) Corticosteroid Start: 10-28-2024 End: 10-28-2025 fluocinonide (Lidex) 0.05 % ointment Indications: Rhus dermatitis Apply topically 2 (two) times a day as needed for irritation or rash Avoid face and groin. 60 g 10/28/2024 10/28/2025 Active 1 ml medroxyPROGESTERone acetate 150 mg/ml injection (8 sources) Progestin Start: 06-25-2023 End: 02-05-2024 medroxyPROGESTERone (Depo-Provera) 150 MG/ML injection Indications: Unwanted fertility Inject 1 mL (150 mg) into the shoulder, thigh, or buttocks every 3 (three) months 1 mL 2 06/25/2023 02/05/2024 Discontinued (Therapy completed) methylPREDNISolone (2 sources) Corticosteroid methylPREDNISolo ne (MEDROL PO) Take by mouth Daily Active predniSONE 10 mg oral tablet (4 sources) Start: 10-28-2024 End: 11-07-2024 take 1 tablet by mouth five times daily, then take 1 tablet by mouth four times daily, then take 1 tablet by mouth three times daily, then take 1 tablet by mouth twice daily, then take 1 tablet by mouth once daily predniSONE (Deltasone) 10 MG tablet Indications: Rhus dermatitis Take 1 tablet (10 mg) by mouth 5 (five) times a day for 2 days, THEN 1 tablet (10 mg) 4 (four) times a day for 2 days, THEN 1 tablet (10 mg) 3 (three) times a day for 2 days, THEN 1 tablet (10 mg) 2 (two) times a day for 2 days, THEN 1 tablet (10 mg) Daily for 2 days. 30 tablet 10/28/2024 11/07/2024 Active PREDNISONE PO Ta ke by mouth Daily Active MV-Min-Fe Fum-FA-DHA ( 1 PO) (2 sources) MV-Min- Fe Fum-FA-DHA ( 1 PO) Take by mouth 0 Active Vit-Fe Fumarate-FA ( VITAMIN PO) (1 source) take 1 tablet by mouth once daily Vit-Fe Fumarate-FA ( VITAMIN PO) Take 1 tablet by mouth daily 0 Active progesterone 50 mg/ml injectable solution (2 sources) Progesterone progesterone 50 MG/ML injection Inject 2 mL into the shoulder, thigh, or buttocks Daily Active valACYclovir 500 mg oral tablet (13 sources) Herpesvirus Nucleoside Analog DNA Polymerase Inhibitor, Herpes Simplex Virus Nucleoside Analog DNA Polymerase Inhibitor, Herpes Zoster Virus Nucleoside Analog DNA Polymerase Inhibitor Start: 04-19-20 take 1 tablet by mouth in the morning valACYclovir (Valtrex) 500 MG tablet Indications: History of herpes genitalis Take 1 tablet (500 mg) by mouth in the morning. Beginning at 36 weeks gestation. Begin on May 14, 2023. 30 tablet 4 04/19/2023 Active Completed/Discontinued Medications Medication Drug Class(es) Dates Sig (Normalized) Sig (Original) metroNIDAZOLE 250 mg oral tablet (1 source) Nitroimidazole Antimicrobial Start: 10-22-2021 End: 10-22-2021 metroNIDAZOLE (FLAGYL) tablet 2,000 mg Start: 10-22-2021 End: 10-22-2021 metroNIDAZOLE (FLAGYL) table t 2,000 mg Problems Active Problems Problem Classification Problem Date Documented Da te Episodic/Chronic Allergic reactions (2 sources) Contact dermatitis due to Genus Toxicodendron; Translations: [Unspecified contact dermatitis due to plants, except food] 10-28-2024 Episodic Anxiety disorders (2 sources) Anxiety; Translations: [Anxiety disorder, unspecified] Onset: 10-28-2024 10-28-2024 Chronic Female infertility (1 source) Female infertility, unspecified; Translations: [Female infertility, unspecified] Onset: 10-16-2024 Chronic Menstrual disorders (2 sources) Irregular periods; Translations: [Irregular menstruation, unspecified] Onset: 10-28-2024 10-28-2024 Chronic Other complications of (2 sources) Abdominal pain in ; Translations: [Other specified related conditions, unspecified trimester] Onset: 10-22-2021 Episodic Other nervous system disorders (2 sources) Chronic pain; Translations: [Other chronic pain] Onset: 10-28-2024 10-28-2024 Chronic Past or Other Problems Problem Classification Problem Date Documented Date Episodic/Chronic Contraceptive and procreative management (3 sources) Unwanted fertility ; Translations: [Encounter for other general counseling and advice on contraception] Onset: 09-23-2024 02-05-2024 Episodic Immunizations and screening for infectious disease (2 sources) Patient encounter status; Translations: [Encounter for screening for infections with a predominantly sexual mode of transmission] 12-05-2023 Episodic Lymphadenitis (3 sources) Mesenteric lymphadenitis; Translations: [Nonspecific mesenteric lymphadenitis] Onset: 07-22-2018 07-22-2018 Episodic Other complications of (13 sources) RhD negative; Translations: [Other specified related conditions, unspecified trimester] Onset: 11-21-2021 01-24-2023 Episodic Other screening for suspected conditions (not mental disorders or infectious disease) (2 sources) Cancer cervix screening status; Translations: [Encounter for screening for malignant neoplasm of cervix] 12-05-2023 Episodic Results Test Name Value Interpretation Reference Range Facility HCG-BETA, SERUMon 12-27-2024 HCG.beta subunit Qn 26 m[IU]/mL Normal [facility] Comment on above: Order Comment: WEEKS (SINCE LMP) MIU/mL 3 WEEKS 5 - 50 4 WEEKS 5 - 426 5 WEEKS 18 - 7,340 6 WEEKS 1,080 - 56,500 7-8 WEEKS 7,650 - 229,000 9-12 WEEKS 25,700 - 288,000 13-16 WEEKS 13,300 - 254,000 17-24 WEEKS 4,060 - 165,400 25-40 WEEKS 3,640 - 117,000 MALES AND NON- FEMALES - <5 MIU/mL This test has been FDA approved for use in only. Elevated levels are not necessarily diagnostic for trophoblastic or nontrophoblastic neoplasms. Performed By: #### H CG #### [facility] ([facility]) [address] [place] [address]. [place] [address] VIR HCG-BETA, SERUMon 12-25-2024 HCG.beta subunit Qn 38 m[IU]/mL Normal [facility] Comment on above: Order Comment: WEEKS (SINCE LMP) MIU/mL 3 WEEKS 5 - 50 4 WEEKS 5 - 426 5 WEEKS 18 - 7,340 6 WEEKS 1,080 - 56,500 7-8 WEEKS 7,650 - 229,000 9-12 WEEKS 25,700 - 288,000 13-16 WEEKS 13,300 - 254,000 17-24 WEEKS 4,060 - 165,400 25-40 WEEKS 3,640 - 117,000 MALES AND NON- FEMALES - <5 MIU/mL This test has been FDA approved for use in only. Elevated levels are not necessarily diagnostic for trophoblastic or nontrophoblastic neoplasms. Performed By: #### H JORGE #### [facility] ([facility]) [address] [place] [address]. [place] [address] VIR US TRANSVAGINAL NON OBon US TRANSVAGINAL NON OB US TRANSVAGINAL NON OB PELVIC ULTRASOUND HISTORY: Female infertility COMPARISON: 09/23/2024 TECHNIQUE: Transvaginal imaging only was performed. FINDINGS: The uterus is retroverted measuring 8.0 x 4.3 x 5.9 cm. The endometrium measures 1.1 cm in thickness, trilaminar in appearance. Trace endometrial fluid. The right ovary measures 2.8 x 1.8 x 1.5 cm and left ovary measures 3.1 x 1.6 x 2.2 cm. There are approximately 10 right ovarian follicles with the largest measuring 0.5 cm and approximately 12 left ovarian follicles with the largest measuring 0.5 cm. Small amount of free fluid in the cul-de-sac. IMPRESSION: Follicle study with findings described above. Finalized by Cody Chase MD on 12/03/2024 2:28 PM Normal [facility] HCG-BETA, SERUMon 10-16-2024 SERUM B HCG,3RD I.S. <^5 Normal [facility] Comment on above: Order Comment: WEEKS (SINCE LMP) MIU/mL 3 WEEKS 5 - 50 4 WEEKS 5 - 426 5 WEEKS 18 - 7,340 6 WEEKS 1,080 - 56,500 7-8 WEEKS 7,650 - 229,000 9-12 WEEKS 25,700 - 288,000 13-16 WEEKS 13,300 - 254,000 17-24 WEEKS 4,060 - 165,400 25-40 WEEKS 3,640 - 117,000 MALES AND NON- FEMALES - <5 MIU/mL This test has been FDA approved for use in only. Elevated levels are not necessarily diagnostic for trophoblastic or nontrophoblastic neoplasms. Performed By: #### H CG #### [facility] ([address] US TRANSVAGINAL NON OBon US TRANSVAGINAL NON OB US TRANSVAGINAL NON OB CLINICAL INFORMATION: Gestational carrier. COMPARISON: Limited comparison with obstetric ultrasound dated 05/07/21. FINDINGS: Limited transvaginal ultrasound of the pelvis was performed. UTERUS: Retroflexed. Size: 7.2 x 3.9 x 4.4 cm. Dual endometrial thickness: 0.7 cm, trilaminar. OVARIES/ADNEXA: Right ovary: Size: 2.8 x 2.0 x 2.1 cm. No demonstrated worrisome/actionable lesion. Normal color Doppler flow. Left ovary: Size: 2.7 x 1.4 x 2.1 cm. No demonstrated worrisome/actionable lesion. Normal color Doppler flow. FREE FLUID: Trace amount, likely physiological. IMPRESSION: Normal pelvic ultrasound noting trace pelvic free fluid, likely physiologic. Finalized by Lucrecia Zapata MD on 09/23/2024 2:53 PM Normal [facility] Laboratory - Cytologyon 11-28 Ripsaw Matcher Cyto stain Nom (Cvx/Vag) [ID] [facility] Comment on above: BLM, CT(ASCP) CT Screening Location: [place] [address] JJK, SCT(ASCP) CT Sc reening Location: [place] [address]. Cytology study comment Cyto stain Clemente (Cvx/Vag) [Interp] [facility] Comment on above: This Pap test has be en evaluated with computer assisted technology. Microscopic observation Cyto stain Nom (Cvx) [facility] Comment on above: Cytology Results: Ne gative for intraepithelial lesion or malignancy. Specimen source Cyto stain Nom (Cvx/Vag) [facility] Comment on above: None given Statement of adequacy Cyto stain (Cvx/Vag) [Interp] [facility] Comment on above: Satisfactory for juan m luation. Endocervical/transformation zone component present. Laboratory - Microbiology an d Antimicrobial susceptibilityon 12-08-2023 C. trachomatis rRNA CRISTHIAN+probe Ql (Unsp spec) Not detected NOT DETECTED [facility] HPV 16+18+31+33+35+39+45+ 51+52+56+58+59+66+68 DNA CRISTHIAN+probe Ql (Cvx) Not detected NOT DETECTED [facility] Comment on above: Not Detected High Risk HPV types (16,18,31,33,35,39,45,51,52, 56,58,59,66,68) were not detected. Other HPV types which cause anogenital lesions may be present. The significance of the other types of HPV in malignant processes has not been established. Methodology: Real Time PCR N. gonorrhoeae rRNA CRISTHIAN+probe Ql (Unsp spec) Not detected NOT DETECTED [facility] T. vaginalis rRNA CRISTHIAN+probe Ql (Unsp spec) Not detected NOT DETECTED [facility] Comment on above: The analytical perfo rmance characteristics of this assay have been determined by [employer]. The modifications have not been cleared or approved by the FDA. This assay has been validated pursuant to the CLIA regulations and is used for clinical purposes. For additional information, please refer to http://education.[employer] [place]/ faq/Trichomonastma (This link is being provided for information/ educational purposes only.) No Panel Informationon 12-07 (ALWAYS MESSAGE) [facility] Comment on above: EXPLANATORY NOTE: The Pap is a screening test for cervical cancer. It is not a diagnostic test and is subject to false negative and false positive results. It is most reliable when a satisfactory sample, regularly obtained, is submitted with relevant clinical findings and history, and when the Pap result is evaluated along with historic and current clinical information. The analytical perfo rmance characteristics of this assay, when used to test SurePath(TM) specimens have been determined by [employer]. The modifications have not been cleared or approved by the FDA. This assay has been validated pursuant to the CLIA regulations and is used for clinical purposes. For additional information, please refer to https://Aspire.[employer] [place]/faq/WVR740 (This link is being provided for information/ educational purposes only.) Clinical information [facility] Comment on above: None given Date of previous biopsy [facility] Comment on above: NONE GIVEN Date of previous PAP smear [facility] Comment on above: NONE GIVEN Last menstrual period start date [facility] Comment on above: NONE GIVEN Performing Organization Information Site ID: AMD Name: [employer] Address: [address] [place] [address] [place], [place] Director: Himanshu Tomlinson M.D.,PhD Site ID: [id number] Name: [employer] [facility] Address: [address] [place] [id number] Director: Amado Horner MD [facility] Performing Organization Information Site ID: [id number] Name: [employer] [facility] Address: [address] [place] [id number] Director: Amado Horner MD [facility] ALL CBC WITH AUTO DIFFon BASOPHILS ABSOLUTE AUTO 0.0 [facility] Basophils/100 WBC (Bld) 0.2 % 0.2 - 2.0 % [facility] Eosinophils/100 WBC (Bld) 0.5 % Low 0.9 - 7.0 % [facility] Erythrocyte distribution width (RBC) [Ratio] 14.4 % 11.0 - 15.0 % [facility] Hematocrit (Bld) [Volume fraction] 27.9 % Low 36.0 - 48.0 % [facility] Hemoglobin (Bld) [Mass/Vol] 8.7 g/dL Low 12.0 - 16.0 g/dL [facility] IMMATURE GRANULOCYTES ABS AUTO 0.06 High [facility] Immature granulocytes/100 WBC (Bld) 0.5 % 0.0 - 0.5 % [facility] Interpretation and review of laboratory results Abnormal [facility] LYMPHOCYTES ABSOLUTE AUTO 2.8 [facility] Lymphocytes/100 WBC (Bld) 21.5 % 20.5 - 60.0 % [facility] MCH (RBC) [Entitic mass] 25.7 pg Low 26.7 - 34.0 pg [facility] MCHC (RBC) [Mass/Vol] 31.2 g/dL 29.9 - 35.2 g/dL [facility] MCV (RBC) [Entitic vol] 82.5 fL 81.0 - 99.0 fL [facility] MONOCYTES ABSOLUTE AUTO 0.9 High [facility] Monocytes/100 WBC (Bld) 6.6 % 1.7 - 12.0 % [facility] NEUTROPHILS ABSOLUTE AUTO 9.2 High [facility] Neutrophils/100 WBC (Bld) 70.7 % 43.0 - 75.0 % [facility] Platelet mean volume (Bld) [Entitic vol] 11.4 fL 9.5 - 13.5 fL [facility] TBH PLT 224 [facility] RBC 3.38 Low [facility] WBC 13.1 High [facility] WITH PLATELET NO DI FFERENTIALon 06-04-2023 Erythrocyte distribution width (RBC) [Ratio] 14.1 % 11.0 - 15.0 % [facility] Hematocrit (Bld) [Volume fraction] 31.1 % Low 36.0 - 48.0 % [facility] Hemoglobin (Bld) [Mass/Vol] 9.8 g/dL Low 12.0 - 16.0 g/dL [facility] Interpretation and review of laboratory results Abnormal [facility] MCH (RBC) [Entitic mass] 25.9 pg Low 26.7 - 34.0 pg [facility] MCHC (RBC) [Mass/Vol] 31.5 g/dL 29.9 - 35.2 g/dL [facility] MCV (RBC) [Entitic vol] 82.1 fL 81.0 - 99.0 fL [facility] Platelet mean volume (Bld) [Entitic vol] 11.8 fL 9.5 - 13.5 fL [facility] TBH PLT 253 [facility] TBH RBC 3.79 Low [facility] WBC 11.6 High [facility] Cult,Urineon 10-23-2021 Cult,Urine Specimen Description .CLEAN CATCH URINE Culture NO SIGNIFICANT GROWTH Report Status FINAL 10/23/2021 Normal [facility] Comment on above: Performed By: #### U #### [facility] [address], [place] [id number] Pond Scaler: Butch Herron MD [facility] [address] [facility] [address] Pond Scaler: Gerardo Dao MD Microscopic Urinalysison - [facility] Bacteria, UA 1+ Abnormal None [facility] Epithelial Cells UA 10 TO 20 [facility] Interpretation and review of laboratory results Abnormal [facility] RBC, UA 2 TO 5 [facility] Trichomonas, UA 3+ Abnormal None [facility] WBC, UA 50 TO 100 [facility] Urinalysison 10-22-2021 Bilirubin Urine Negative NEGATIVE [facility] Color, UA Yellow Yellow [facility] Glucose, Ur Negative NEGATIVE [facility] Interpretation and review of laboratory results Abnormal [facility] Ketones Ql (U) Negative NEGATIVE [facility] Leukocyte esterase Test strip Ql (U) LARGE Abnormal NEGATIVE [facility] Nitrite, Urine Negative NEGATIVE [facility] pH, UA 7.0 [facility] Protein, UA Negative NEGATIVE [facility] Specific [place], UA 1.020 [facility] Turbidity UA Clear Clear [facility] Urine Hgb Negative NEGATIVE [facility] Urobilinogen, Urine Normal Normal [facility] Urinalysis, Routineon 2021 Bilirubin, SemiQt,Ur Negative Normal NEG [facility] Comment on above: Performed By: #### U A, UMICAO #### [facility] [address] [place] [address] [place], [place] [id number] Pond Scaler: Gerardo Dao MD Blood, Urine Negative Normal [facility] Comment on above: Performed By: #### U A, UMICAO #### [facility] [address] [place] [address] [place], [place] [id number] Pond Scaler: Gerardo Dao MD Clarity (U) Clear Normal CLEAR [facility] Comment on above: Performed By: #### U A, UMICAO #### [facility] [address] [place], [place] [id number] Pond Scaler: Gerardo Dao MD Color (U) Yellow Normal YEL [facility] Comment on above: Performed By: #### U A, UMICAO #### [facility] [address] [place] [address] Dr[place], [place] [phone] Pond Scaler: Gerardo Dao MD Glucose Ql (U) Negative Normal NEG [facility] Comment on above: Performed By: #### U A, UMICAO #### [facility] [address] [place], [place] [phone] Pond Scaler: Gerardo Dao MD Ketones Ql (U) Negative Normal NEG [facility] Comment on above: Performed By: #### U A, UMICAO #### [facility] [address] [place] [address] Dr[place], [place] [phone] Pond Scaler: Gerardo Dao MD Leukocyte esterase Test strip Ql (U) LARGE Abnormal NEG [facility] Comment on above: Performed By: #### U A, UMICAO #### [facility] [address] [place] [address] Pond Scaler: Gerardo Dao MD Nitrite,Ur Negative Normal NEG [facility] Comment on above: Performed By: #### U A, UMICAO #### [facility] [address] [place] [address] Pond Scaler: Gerardo Dao MD PH,Ur 7.0 Normal 5.0-9.0 [facility] Comment on above: Performed By: #### U A, UMICAO #### [facility] [address] [place] [address] Pond Scaler: Gerardo Dao MD Protein Ql (U) Negative Normal NEG [facility] Comment on above: Performed By: #### U A, UMICAO #### [facility] [address] [place] [address] Pond Scaler: Gerardo Dao MD Spec. [place],Ur 1.020 Normal 1.010-1.020 [facility] Comment on above: Performed By: #### U A, UMICAO #### [facility] [address] [place] [address] [place] [address] Pond Scaler: Gerardo Dao MD Urobilinogen,Ur Normal Normal NORM [facility] Comment on above: Performed By: #### U A, UMICAO #### [facility] [address] [place] [address] Pond Scaler: Gerardo Dao MD Urinalysis,Microon 2 ----- Normal [facility] Comment on above: Performed By: #### U A, UMICAO #### [facility] [address] [place] [address] Pond Scaler: Gerardo Dao MD Bacteria 1+ Abnormal NONE [facility] Comment on above: Performed By: #### U A, UMICAO #### [facility] [address] [place], [place] [id number] Pond Scaler: Gerardo Dao MD Epithelial cells LM Ql (Urine sed) 10 TO 20 Normal 0-25 [facility] Comment on above: Performed By: #### U A, UMICAO #### [facility] [address] [place], [place] [id number] Pond Scaler: Gerardo Dao MD Trichomonas 3+ Abnormal NONE [facility] Comment on above: Performed By: #### U A, UMICAO #### [facility] [address] [place], [place] [id number] Pond Scaler: Gerardo Dao MD Urine RBC's 2 TO 5 Normal 0-2 [facility] Comment on above: Performed By: #### U A, UMICAO #### [facility] [address] [place] [address] Pond Scaler: Gerardo Dao MD Urine WBC's 50 TO 100 Normal 0-5 [facility] Comment on above: Performed By: #### U A, UMICAO #### [facility] [address] [place], [place] [id number] Pond Scaler: Gerardo Dao MD US OB 2nd/3rd Trimesteron [...] 4.8 cm (20 weeks, 4 days) Head Xxxvhrlxijnxs47.3 cm (20 weeks, 5 days) Abdominal Rrmkffsrwnocd84.3 cm (20 weeks, 3 days) Femur Length [...] J Luis Jama on 08/22/2021 1132 Normal [facility] Specialist Q - ABO GROUP AND RH TYPEon 06-07-2021 ABO group Nom (Bld) A Normal [facility] Special[facility] Comment on above: Order Comment: [facility] performed at: [facility] [employer] [facility], [address] [place] [address], [address] [place] [address], [phone], [employer] Finishing Worker: Amado Horner MD [facility] Date/Time: [facility] Results Received Date/Time: [facility] Reported Date/Time: Performed By: #### 8 6702A, 64416B, 12571, 430A, 265F, 42A, 6304R, 2782A, 61446 #### [facility] Default [address] [place] [address] RH TYPE Negative Normal [facility] Specialist Comment on above: Order Comment: [facility] performed at: [facility] [employer] [facility], [address] , [address] [place] [address], [phone], [employer] Worker: Amado Horner MD [facility] Date/Time: [id number] [facility] Results Received Date/Time: [id number] [facility] Reported Date/Time: Result Comment: For additional information, please refer to http://[email or web address] Links.[employer]/faq/BXI808 (This link is being provided for informational/ educational purposes only.) Performed By: #### 8 6702A, 92176D, 07200, 430A, 265F, 42A, 6304R, 2782A, 39966 #### [facility] Default [address] [place] [address] Q - ANTIBODY SCREEN,RBC W/RE FL ID,TITER AND AGon 06-07-2021 ANTIBODY SCREEN, RBC W/REFL ID, TITER AND AG Detected Normal [facility] Specialist Comment on above: Order Comment: [facility] performed at: [facility], [employer] [facility], [address] [place] [address], [address] [place] [address], [address] [place] [address], [employer] Fin[employer] Worker: Amado Horner MD [facility] Date/Time: [facility] Results Received Date/Time: [facility] Reported Date/Time: Result Comment: Refe rence range No antibodies detected This assay is a screening test for the detection of red blood cell antibodies. The test is not to be used for pretransfusion screening or for the medical management of an alloimmunized . Performed By: #### 8 6702A, 69885R, 24402, 430A, 265F, 42A, 6304R, 2782A, 10646 #### [facility] Default [address] [place] [address] Q - CBC W/DIFF AND PLTon BASOABS 12 cells/uL Normal 0-200 [facility] Specialist Comment on above: Order Comment: [facility] performed at: [employer], [employer] [facility], [address] [place] [address], [address] [place] [address], [address] [place] [address], [employer] Worker: Amado Horner MD [facility] Date/Time: [id number] [facility] Results Received Date/Time: [id number] [facility] Reported Date/Time: [id number] Performed By: #### 1 1363, 1149T, 85214R, 25848, 8472 #### [facility] Default [address] [place] [address] Basophils/100 WBC (Bld) 0.2 % Normal [facility] Specialist Comment on above: Order Comment: [facility] performed at: [facility], [employer] [facility], [address] [place] [address], [address] [place] [address], [address] [place] [address], [employer] Worker: Amado Horner MD [facility] Date/Time: [facility] Results Received Date/Time: [facility] Reported Date/Time: Performed By: #### 1 1363, 1149T, 30340W, 39404, 8472 #### [facility] Default [address] [place] [address] EOSABS 68 cells/uL Normal 15-500 [facility] [employer] Superintendent Comment on above: Order Comment: [facility] performed at: [facility] [employer] [facility], [address] [facility], [address] [place] [address], [address] [place] [address], [employer] Worker: Amado Horner MD [facility] Date/Time: [facility] Results Received Date/Time: [facility] Reported Date/Time: Performed By: #### 1 1363, 1149T, 79077T, 23879, 8472 #### [facility] Default [address] [place] [address] Eosinophils/100 WBC (Bld) 1.1 % Normal [facility] [employer] [facility] Comment on above: Order Comment: [facility] performed at: [facility] [employer] [facility], [address] [place] [address], [address] [place] [address], [address] [place] [address], [employer] Finishing Worker: Amado Horner MD [facility] Date/Time: [facility] Results Received Date/Time: [facility] Reported Date/Time: Performed By: #### 1 1363, 1149T, 79486H, 13252, 8472 #### [facility] [address] [place] [address] Erythrocyte distribution width (RBC) [Ratio] 12.9 % Normal 11.0-15.0 [facility] [employer] [facility] Comment on above: Order Comment: [facility] performed at: [facility] [employer] [facility], [address] [facility], [address] [place] [address], [address] [place] [address], [employer]ishing Worker: Amado Horner MD [facility] Date/Time: [facility] Results Received Date/Time: [facility] Reported Date/Time: Performed By: #### 1 1363, 1149T, 98206V, 36175, 8472 #### [facility] Default [address] [place] [address] Hematocrit (Bld) [Volume fraction] 38.7 % Normal 35.0-45.0 [facility] [employer] [facility] Comment on above: Order Comment: [facility] performed at: [facility] [employer] [facility], [address] [facility], [address] [place] [address], [address] [place] [address], [employer] Finishing Worker: Amado Horner MD [facility] Date/Time: [facility] Results Received Date/Time: [facility] Reported Date/Time: Performed By: #### 1 1363, 1149T, 38968K, 24286, 8472 #### [facility] Default [address] [place] [address] Hemoglobin (Bld) [Mass/Vol] 12.7 g/dL Normal 11.7-15.5 [facility] [employer] [facility] Comment on above: Order Comment: [facility] performed at: [facility] [employer] [facility], [address] [place] [address], [address] [place] [address], [address] [place] [address], [employer] Worker: Amado Horner MD [facility] Date/Time: [facility] Results Received Date/Time: [facility] Reported Date/Time: Performed By: #### 1 1363, 1149T, 93975W, 09708, 8472 #### [facility] Default [address] [place] [address] Lymphocytes (Bld) [#/Vol] 1.978 10*3/uL Normal 850-3900 [facility] [employer] [facility] Comment on above: Order Comment: [facility] performed at: [facility] [employer] [facility], [address] [facility], [address] [place] [address], [address] [place] [address], [employer] Worker: Amado Horner MD [facility] Date/Time: [facility] Results Received Date/Time: [facility] Reported Date/Time: Performed By: #### 1 1363, 1149T, 42043X, 24164, 8472 #### [facility] Default [address] [place] [address] Lymphocytes/100 WBC (Bld) 31.9 % Normal [facility] Specialist Comment on above: Order Comment: [facility] performed at: [facility] [employer] [facility], [address] [place] [address], [address] [place] [address], [address] [place] [address], [employer] Worker: Amado Horner MD [facility] Date/Time: [facility] Results Received Date/Time: [facility] Reported Date/Time: Performed By: #### 1 1363, 1149T, 90657G, 24798, 8472 #### [facility] Default [address] [place] [address] MCH (RBC) [Entitic mass] 29.0 pg Normal 27.0-33.0 [facility] Specialist Comment on above: Order Comment: [facility] performed at: [facility] [employer] [facility], [address] [place] [address], [address] [place] [address], [address] [place] [address], [employer] Worker: Amado Horner MD [facility] Date/Time: [facility] Results Received Date/Time: [facility] Reported Date/Time: Performed By: #### 1 1363, 1149T, 57898Y, 55998, 8472 #### [facility] Default [address] [place] [address] MCHC (RBC) [Mass/Vol] 32.8 g/dL Normal 32.0-36.0 [facility] Comment on above: Order Comment: [facility] performed at: [facility] [employer] [facility], [address] [place] [address], [address] [place] [address], [address] [place] [address], [employer] Worker: Amado Horner MD [facility] Date/Time: [facility] Results Received Date/Time: [facility] Reported Date/Time: Performed By: #### 1 1363, 1149T, 45710W, 97611, 8472 #### [facility] Default [address] [place] [address] MCV (RBC) [Entitic vol] 88.4 fL Normal 80.0-100.0 [facility] Specialist Comment on above: Order Comment: [facility] performed at: [facility] [employer] [facility], [address] , [address] [place] [address], [address] [place] [address], [employer] Worker: Amado Horner MD [facility] Date/Time: [facility] Results Received Date/Time: [facility] Reported Date/Time: Performed By: #### 1 1363, 1149T, 87886I, 91653, 8472 #### [facility] Default [address] [place] [address] MONOABS 391 cells/uL Normal 200-950 [facility] Specialist Comment on above: Order Comment: [facility] performed at: [facility] [employer] [facility], [address] , [address] [place] [address], [address] [place] [address], [employer] Worker: Amado Horner MD [facility] Collection Date/Time: [facility] Results Received Date/Time: [facility] Reported Date/Time: Performed By: #### 1 1363, 1149T, 31912D, 74658, 8472 #### [facility] Default [address] [place] [address] Monocytes/100 WBC (Bld) 6.3 % Normal [facility] Specialist Comment on above: Order Comment: [facility] performed at: [facility] [employer] [facility], [address] , [address] [place] [address], [address] [place] [address], [employer] Worker: Amado Horner MD [facility] Date/Time: [facility] Results Received Date/Time: [facility] Reported Date/Time: Performed By: #### 1 1363, 1149T, 52835Z, 51665, 8472 #### [facility] Default [address] [place] [address] Neutrophils (Bld) [#/Vol] 3.751 10*3/uL Normal 0222-4093 [facility] Specialist Comment on above: Order Comment: [facility] performed at: [facility] [employer] [facility], [address] , [address] [place] [address], [address] [place] [address], [employer] Worker: Amado Horner MD [facility] Collection Date/Time: [facility] Results Received Date/Time: [facility] Reported Date/Time: Performed By: #### 1 1363, 1149T, 26173C, 01321, 8472 #### [facility] Default [address] [place] [address] Neutrophils/100 WBC (Bld) 60.5 % Normal [facility] Specialist Comment on above: Order Comment: [facility] performed at: [facility] [employer] [facility], [address] , [address] [place] [address], [address] [place] [address], [employer] Worker: Amado Horner MD [facility] Collection Date/Time: [facility] Results Received Date/Time: [facility] Reported Date/Time: Performed By: #### 1 1363, 1149T, 28730N, 82390, 8472 #### [facility] Default [address] [place] [address] Platelet mean volume (Bld) [Entitic vol] 12.0 fL Normal 7.5-12.5 [facility] [employer] Superintendent Comment on above: Order Comment: [facility] performed at: [facility] [employer] [facility], [address] , [address] [place] [address], [address] [place] [address], [employer] Worker: Amado Horner MD [facility] Collection Date/Time: [facility] Results Received Date/Time: [facility] Reported Date/Time: Performed By: #### 1 1363, 1149T, 72953W, 47144, 8472 #### [facility] Default [address] [place] [address] Platelets (Bld) [#/Vol] 222 10*3/uL Normal 140-400 [facility] Comment on above: Order Comment: [facility] performed at: [facility] [employer] [facility], [address] , [address] [place] [address], [address] [place] [address], [employer] Worker: Amado Horner MD [facility] Date/Time: [facility] Results Received Date/Time: [facility] Reported Date/Time: Performed By: #### 1 1363, 1149T, 41309F, 36411, 8472 #### [facility] Default [address] [place] [address] RBC (Bld) [#/Vol] 4.38 10*6/uL Normal 3.80-5.10 [facility] Comment on above: Order Comment: [facility] performed at: [facility] [employer] [facility], [address] , [address] [place] [address], [address] [place] [address], [employer] Worker: Amado Horner MD [facility] Collection Date/Time: [facility] Results Received Date/Time: [facility] Reported Date/Time: Performed By: #### 1 1363, 1149T, 05721E, 31074, 8472 #### [facility] Default [address] [place] [address] WBC (Bld) [#/Vol] 6.2 10*3/uL Normal 3.8-10.8 [facility] Comment on above: Order Comment: [facility] performed at: [facility] [employer] [facility], [address] , [address] [place] [address], [address] [place] [address], [employer] Worker: Amado Horner MD [facility] Date/Time: [facility] Results Received Date/Time: [facility] Reported Date/Time: Performed By: #### 1 1363, 1149T, 59309N, 67279, 8472 #### [facility] Default [address] [place] [address] Q - CHLAMYDIA TRACHOMATIS/NE ISSERIA GONORRHOEAE RNA TMAon 06-07-2021 CHLAMYDIA TRACHOMATIS RNA, TMA, UROGENITAL Not detected Normal NOT DETECTED [facility] [employer] Comment on above: Order Comment: [facility] performed at: [employer] [facility], [address] , [address] [place] [address], [address] [place] [address], [employer] Worker: Amado Horner MD [facility] Collection Date/Time: [facility] Results Received Date/Time: [facility] Reported Date/Time: Performed By: #### 1 1363, 1149T, 68552A, 04643, 8472 #### [facility] Default [address] [place] [address] NEISSERIA GONORRHOEAE RNA, TMA, UROGENITAL Not detected Normal NOT DETECTED [facility] [employer] Superintendent Comment on above: Order Comment: [facility] performed at: [employer] [facility], [address] , [address] [place] [address], [address] [place] [address], [employer] Worker: Amado Horner MD [facility] Collection Date/Time: [facility] Results Received Date/Time: [facility] Reported Date/Time: Performed By: #### 1 1363, 1149T, 70687Q, 10343, 8472 #### [facility] Default [address] [place] [address] Q - CULTURE,URINE,ROUTINEon 06-07-2021 CULTURE, URINE, ROUTINE SEE NOTE Normal [facility] [employer] [facility] Comment on above: Order Comment: [facility] performed at: [employer] [facility], [address] , [address] [place] [address], [address] [place] [address], [employer] Worker: Amado Horner MD [facility] Collection Date/Time: [facility] Results Received Date/Time: [facility] Reported Date/Time: Result Comment: CULT URE, URINE, ROUTINE Micro Number: [id number] Test Status: Final Specimen Source: Urine Specimen Quality: Adequate Result: Mixed genital ana isolated. These superficial bacteria are not indicative of a urinary tract infection. No further organism identification is warranted on this specimen. If clinically indicated, recollect clean-catch, mid-stream urine and transfer immediately to Urine Culture Transport Tube. Performed By: #### 1 1363, 1149T, 38626Z, 51027, 8472 #### [facility] Default [address] [place] [address] Q - DRUG TOX MONITORING TH CONFIRMATION,URINEon 06-07-2021 Amphetamines Negative Normal <500 [facility] [employer] Superintendent Comment on above: Order Comment: [facility] performed at: [facility] [employer] [facility], [address] [place] [address], [address] [place] [address], [address] [place] [address], [employer] Worker: Amado Horner MD [facility] Date/Time: [facility] Results Received Date/Time: [facility] Reported Date/Time: Performed By: #### 1 1363, 1149T, 74267P, 81704, 8472 #### [facility] Default [address] [place] [address] Barbiturates Negative Normal <300 [facility] Specialist Comment on above: Order Comment: [facility] performed at: [employer] [facility], [address] , [address] [place] [address], [address] [place] [address], [employer] Worker: Amado Horner MD [facility] Date/Time: [facility] Results Received Date/Time: [facility] Reported Date/Time: Performed By: #### 1 1363, 1149T, 80516W, 40113, 8472 #### [facility] Default [address] [place] [address] Benzodiazepines Negative Normal <100 [facility] Comment on above: Order Comment: [facility] performed at: [facility] [employer] [facility], [address] , [address] [place] [address], [address] [place] [address], [employer] Worker: Amado Horner MD [facility] Date/Time: [facility] Results Received Date/Time: [facility] Reported Date/Time: Performed By: #### 1 1363, 1149T, 11452Q, 82881, 8472 #### [facility] Default [address] [place] [address] Cocaine Metabolite Negative Normal <150 [facility] Comment on above: Order Comment: [facility] performed at: [facility], [employer] [facility], [address] , [address] [place] [address], [address] [place] [address], [employer] Worker: Amado Horner MD [facility] Date/Time: [facility] Results Received Date/Time: [facility] Reported Date/Time: Performed By: #### 1 1363, 1149T, 27265G, 23667, 8472 #### [facility] Default [address] [place] [address] COMMENT SEE NOTE Normal [facility] Comment on above: Order Comment: [facility] performed at: Q, [employer] [facility], [address] , [address] [place] [address], [address] [place] [address], [employer] Worker: Amado Horner MD [facility] Date/Time: [facility] [...] interpreting these drug results, please contact a [employer] Toxicology Specialist: [phone] ( [phone] M-F, 8am-6pm EST. Performed By: #### 1 1363, 1149T, 43835Q, 53902, 8472 #### [facility] Default [address] [place] [address] Result Comment: The analytical performance characteristics of this assay, when used to test SurePath() specimens have been determined by [employer]. The modifications have not been cleared or approved by the FDA. This assay has been validated pursuant to the CLIA regulations and is used for clinical purposes. For additional information, please refer to https://education.[email or web address]rupt Lace/faq/QHO444 (This link is being provided for information/ educational purposes only.) Marijuana Metabolite 20 Negative Normal <20 [facility] Specialist Comment on above: Order Comment: [facility] performed at: [facility] [employer] [facility], [address] , [address] [place] [address], [address] [place] [address], [employer] Worker: Amado Horner MD [facility] Date/Time: [facility] Results Received Date/Time: [facility] Reported Date/Time: Performed By: #### 1 1363, 1149T, 26898U, 00135, 8472 #### [facility] Default [address] [place] [address] Methadone Metabolite Negative Normal <100 [facility] Comment on above: Order Comment: [facility] performed at: [facility] [employer] [facility], [address], [address] [place] [address], [address] [place] [address], [employer] Worker: Amado Horner MD [facility] Date/Time: [facility] Results Received Date/Time: [facility] Reported Date/Time: Performed By: #### 1 1363, 1149T, 55253M, 86088, 8472 #### [facility] Default [address] [place] [address] Opiates Negative Normal <100 [facility] Comment on above: Order Comment: [facility] performed at: [facility] [employer] [facility], [address] , [address] [place] [address], [address] [place] [address], [employer] Worker: Amado Horner MD [facility] Date/Time: [facility] Results Received Date/Time: [facility] Reported Date/Time: Performed By: #### 1 1363, 1149T, 46541C, 16871, 8472 #### [facility] Default [address] [place] [address] Oxycodone Negative Normal <100 [facility] [employer] Superintendent Comment on above: Order Comment: [facility] performed at: [facility] [employer] [facility], [address] [place] [address], [address] [place] [address], [address] [place] [address], [employer] Worker: Amado Horner MD [facility] Date/Time: [facility] Results Received Date/Time: [facility] Reported Date/Time: Performed By: #### 1 1363, 1149T, 93283Z, 81102, 8472 #### [facility] Default [address] [place] [address] Phencyclidine Negative Normal <25 [facility] [employer] Superintendent Comment on above: Order Comment: [facility] performed at: [facility] [employer] [facility], [address] [facility], [address] [place] [address], [address] [place] [address], [employer] Worker: Amado Horner MD [facility] Date/Time: [facility] Results Received Date/Time: [facility] Reported Date/Time: Performed By: #### 1 1363, 1149T, 70406S, 73192, 8472 #### [facility] [address] [place] [address] Q - HEPATITIS B SURFACE ANTI GEN W/ REFLEXon 06-07-2021 HEPATITIS B SURFACE ANTIGEN Non-Reactive Normal NON-REACTIVE [facility] [employer] Comment on above: Order Comment: [facility] Testing performed at: [employer] [facility], 5 [facility], [address] [place] [address], [address] [place] [address], [employer] Worker: Amado Horner MD [facility] Collection Date/Time: [facility] Results Received Date/Time: [facility] Reported Date/Time: Performed By: #### 1 1363, 1149T, 49860Q, 54373, 8472 #### [facility] Default [address] [place] [address] Q - URINALYSIS WITH REFLEX T O MICROSCOPICon 06-07-2021 Appearance (U) TURBID Abnormal CLEAR [facility] [employer] Comment on above: Order Comment: [facility] Testing performed at: [employer] [facility], [address], [address] [place] [address], [address] [place] [address], [employer] Worker: Amado Horner MD [facility] Collection Date/Time: [facility] Results Received Date/Time: [facility] Reported Date/Time: Performed By: #### 1 1363, 1149T, 67177M, 49554, 8472 #### [facility] [address] [place] [address] BACTERIA NONE SEEN Normal NONE SEEN [facility] [employer] Comment on above: Order Comment: [facility] performed at: [employer] [facility], [address], [address] [place] [address], [address] [place] [address], [employer] Worker: Amado Horner MD [facility] Collection Date/Time: [facility] Results Received Date/Time: [facility] Reported Date/Time: Performed By: #### 1 1363, 1149T, 41389P, 68319, 8472 #### [facility] [address] [place] [address] Bilirubin Ql (U) Negative Normal NEGATIVE [facility] [employer] Comment on above: Order Comment: [facility] Testing performed at: [employer] [facility], [address], [address] [place] [address], [address] [place] [address], [employer] Worker: Amado Horner MD [facility] Collection Date/Time: [facility] Results Received Date/Time: [facility] Reported Date/Time: Performed By: #### 1 1363, 1149T, 97971J, 01235, 8472 #### [facility] [address] [place] [address] Color (U) YELLOW Normal YELLOW [facility] [employer] Comment on above: Order Comment: [facility] performed at: [employer] [facility], [address], [address] [place] [address], [address], [employer] Worker: Amado Horner MD [facility] Collection Date/Time: [facility] Results Received Date/Time: [facility] Reported Date/Time: Performed By: #### 1 1363, 1149T, 10016C, 30828, 8472 #### [facility] [address] [place] [address] Glucose Ql (U) Negative Normal NEGATIVE [facility] [employer] Comment on above: Order Comment: [facility] Testing performed at: [employer] [facility], [address] , [address] [place] [address], [address] [place] [address], [employer] Worker: Amado Horner MD [facility] Collection Date/Time: [facility] Results Received Date/Time: [facility] Reported Date/Time: Performed By: #### 1 1363, 1149T, 84938Q, 57316, 8472 #### [facility] [address] [place] [address] HYALINE CAST NONE SEEN Normal NONE SEEN [facility] [employer] Superintendent Comment on above: Order Comment: [facility] Testing performed at: [employer] [facility], [address] [facility], [address] [place] [address], [address] [place] [address], [employer] Worker: Amado Horner MD [facility] Collection Date/Time: [facility] Results Received Date/Time: [facility] Reported Date/Time: Performed By: #### 1 1363, 1149T, 73001P, 65600, 8472 #### [facility] [address] [place] [address] Ketones Ql (U) Negative Normal NEGATIVE [facility] [employer] Comment on above: Order Comment: [facility] Testing performed at: [employer] [facility], [address] , [address] [place] [address], [address] [place] [address], [employer] Worker: Amado Horner MD [facility] Collection Date/Time: [facility] Results Received Date/Time: [facility] Reported Date/Time: [id number] Performed By: #### 1 1363, 1149T, 09144F, 80478, 8472 #### [facility] [address] [place] [address] Leukocyte esterase Test strip Ql (U) 3+ Abnormal NEGATIVE [facility] Comment on above: Order Comment: [facility] Testing performed at: [employer] [facility], [address] , [address] [place] [address], [address] [place] [address], [employer] Worker: Amado Horner MD [facility] Collection Date/Time: [facility] Results Received Date/Time: [facility] Reported Date/Time: Performed By: #### 1 1363, 1149T, 89369I, 17859, 8472 #### [facility] [address] [place] [address] Nitrite Ql (U) Negative Normal NEGATIVE [facility] Specialist Comment on above: Order Comment: [facility] Testing performed at: [employer] [facility], [address] , [address] [place] [address], [address] [place] [address], [employer] Worker: Amado Horner MD [facility] Collection Date/Time: [facility] Results Received Date/Time: [facility] Reported Date/Time: Performed By: #### 1 1363, 1149T, 66329F, 74811, 8472 #### [facility] [address] [place] [address] OCCULT BLOOD Negative Normal NEGATIVE [facility] [employer] Comment on above: Order Comment: [facility] Testing performed at: [employer] [facility], [address] , [address] [place] [address], [address] [place] [address], [employer] Worker: Amado Horner MD [facility] Collection Date/Time: [facility] Results Received Date/Time: [facility] Reported Date/Time: Performed By: #### 1 1363, 1149T, 80049A, 04504, 8472 #### [facility] [address] [place] [address] pH (U) 8.0 [pH] Normal 5.0-8.0 [facility] [employer] Comment on above: Order Comment: [facility] Testing performed at: [employer] [facility], [address] [place] [address], [address] [place] [address], [address] [place] [address], [employer] Worker: Amado Horner MD [facility] Collection Date/Time: [facility] Results Received Date/Time: [facility] Reported Date/Time: Performed By: #### 1 1363, 1149T, 04814I, 99565, 8472 #### [facility] [address] [place] [address] Protein Ql (U) TRACE Abnormal NEGATIVE [facility] Specialist Comment on above: Order Comment: [facility] Testing performed at: [employer] [facility], [address] [place] [address], [address] [place] [address], [address] [place] [address], [employer] Worker: Amado Horner MD [facility] Collection Date/Time: [facility] Results Received Date/Time: [facility] Reported Date/Time: Performed By: #### 1 1363, 1149T, 88123H, 40465, 8472 #### [facility] [address] [place] [address] RBC 0-2 Normal < OR = 2 [facility] [employer] Comment on above: Order Comment: [facility] Testing performed at: [employer] [facility], [address] [place] [address], [address] [place] [address], [address] [place] [address], [employer] Worker: Amado Horner MD [facility] Collection Date/Time: [facility] Results Received Date/Time: [facility] Reported Date/Time: Performed By: #### 1 1363, 1149T, 57344Q, 42142, 8472 #### [facility] [address] [place] [address] Specific gravity (U) [Rel density] 1.018 Normal 1.001-1.035 [facility] [employer] Comment on above: Order Comment: [facility] Testing performed at: [employer] [facility], [address] [facility], [address] [place] [address], [address] [place] [address], [employer] Worker: Amado Horner MD [facility] Collection Date/Time: [facility] Results Received Date/Time: [facility] Reported Date/Time: Performed By: #### 1 1363, 1149T, 99317F, 50905, 8472 #### [facility] [address] [place] [address] SQUAMOUS EPITHELIAL CELLS 10-20 Abnormal < OR = 5 [facility] [employer] Comment on above: Order Comment: [facility] Testing performed at: [employer] [facility], [address] [place] [address], [address] [place] [address], [address] [place] [address], [employer] Worker: Amado Horner MD [facility] Collection Date/Time: [facility] Results Received Date/Time: [facility] Reported Date/Time: Performed By: #### 1 1363, 1149T, 14973H, 20265, 8472 #### [facility] [address] [place] [address] WBC 0-5 Normal < OR = 5 [facility] [employer] Comment on above: Order Comment: [facility] Testing performed at: [employer] [facility], [address] [place] [address], [address] [place] [address], [address] [place] [address], [employer] Worker: Amado Horner MD [facility] Collection Date/Time: [facility] Results Received Date/Time: [facility] Reported Date/Time: Performed By: #### 1 1363, 1149T, 40128C, 37403, 8472 #### [facility] [address] [place] [address] US OB 1ST Trimesteron 2021 US OB [...] J Luis Jama on 06/07/2021 1200 Normal [facility] [employer] Q - CHLAMYDIA TRACHOMATIS/NE ISSERIA GONORRHOEAE RNA TMAon 05-09-2021 CHLAMYDIA TRACHOMATIS RNA, TMA, UROGENITAL Not detected Normal NOT DETECTED [facility] [employer] Superintendent Comment on above: Order Comment: [facility] Testing performed at: [employer] [facility], [address] [place] [address], [address] [place] [address], [address], [employer] Worker: Amado Horner MD [facility] Collection Date/Time: [id number] [facility] Results Received Date/Time: [facility] Reported Date/Time: Performed By: #### 1 1363, 1149T, 20582P, 59084, 8472 #### [facility] Default [address] [place] [address] COMMENT SEE NOTE Normal [facility] Comment on above: Order Comment: [facility] Testing performed at: [employer] [facility], [address] , [address] [place] [address], [address], [employer] Worker: Amado Horner MD [facility] Collection Date/Time: [id number] [facility] Results Received Date/Time: [facility] Reported Date/Time: Result Comment: The analytical performance characteristics of this assay, when used to test SurePath(TM) specimens have been determined by [employer]. The modifications have not been cleared or approved by the FDA. This assay has been validated pursuant to the CLIA regulations and is used for clinical purposes. For additional information, please refer to https://education.[employer] [place]/faq/BQD755 (This link is being provided for information/ educational purposes only.) Performed By: #### 1 1363, 1149T, 64946M, 92880, 8472 #### [facility] Default [address] [place] [address] NEISSERIA GONORRHOEAE RNA, TMA, UROGENITAL Not detected Normal NOT DETECTED [facility] [employer] Superintendent Comment on above: Order Comment: [facility] Testing performed at: [employer] [facility], [address], [address] [place] [address], [address] [place] [address], [employer] Worker: Amado Horner MD [facility] Collection Date/Time: [facility] Results Received Date/Time: [facility] Reported Date/Time: Performed By: #### 1 1363, 1149T, 37948D, 28662, 8472 #### [facility] Default [address] [place] [address] Q - HCG [place] Q[place] 2 [place] [address] m[IU]/mL High [facility] [employer] Superintendent Comment on above: Order Comment: [facility] performed at: [employer] [facility], [address], [address] [place] [address], [address] [place] [address], [employer] Worker: Amado Horner MD [facility] Collection Date/Time: [facility] Results Received Date/Time: [facility] Reported Date/Time: Result Comment: Refe rence Range Non or premenopausal <5 Postmenopausal <10 Values from different assay methods may vary. The use of this assay to monitor or to diagnose patients with cancer or any condition unrelated to has not been cleared or approved by the FDA or the public health registrar of the assay. Performed By: #### 1 1363, 1149T, 42409U, 87066, 8472 #### [facility] Default [address] [place] [address] Q - HEPATITIS C ANTIBODY W/R EFLEX TO HCV RNA,QUANT,RT-PCRon 05-09-2021 HEPATITIS C ANTIBODY Non-Reactive Normal NON-REACTIVE [facility] Specialist Comment on above: Order Comment: [facility] Testing performed at: [employer] [facility], [address], [address] [place] [address], [address] [place] [address], [employer] Worker: Amado Horner MD [facility] Collection Date/Time: [facility] Results Received Date/Time: [facility] Reported Date/Time: Performed By: #### 1 1363, 1149T, 81365S, 37022, 8472 #### [facility] Default [address] [place] [address] SIGNAL TO CUT-OFF 0.02 Normal <1.00 [employer] [place] [employer] Comment on above: Order Comment: [facility] Testing performed at: [employer] [facility], [address] , [address] [place] [address], [address] [place] [address], [employer] Worker: Amado Horner MD [facility] Collection Date/Time: [facility] Results Received Date/Time: [facility] Reported Date/Time: Result Comment: HCV antibody was non-reactive. There is no laboratory evidence of HCV infection. In most cases, no further action is required. However, if recent HCV exposure is suspected, a test for HCV RNA (test code 09897) is suggested. For additional information please refer to http://education.[employer] [place]/faq/DCQ90k5 (This link is being provided for informational/ educational purposes only.) Performed By: #### 1 1363, 1149T, 33053G, 41946, 8472 #### [facility] [address] [place] [address] Q - HIV 1/2 ANTIGEN/ANTIBODY ,FOURTH GENERATION W/RFLon 05-09-2021 HIV AG/AB, 4TH GEN Non-Reactive Normal NON-REACTIVE No [facility] [place] [employer] [facility] Comment on above: Order Comment: [facility] Testing performed at: [employer] [facility], [address] , [address] [place] [address], [address] [place] [address], [employer] Worker: Amado Horner MD [facility] Collection Date/Time: [facility] [...] purpose. For additional information please refer to http://education.[employer] [place]/faq/RWH236 (This link is being provided for informational/ educational purposes only.) The performance of this assay has not been clinically validated in patients less than 2 years old. Performed By: #### 1 1363, 1149T, 55243U, 17743, 8472 #### [facility] [address] [place] [address] Q - RPR (MONITOR) W/RFX TITE Jesus 05-09-2021 RPR (MONITOR) W/REFL TITER Non-Reactive Normal NON-REACTIVE [facility] Comment on above: Order Comment: [facility] Testing performed at: [employer] [employer] [facility], [address] [place] [address], [address] [place] [address], [address], [employer] Worker: Amado Horner MD [facility] Collection Date/Time: [id number] [facility] Results Received Date/Time: [id number] [facility] Reported Date/Time: [id number] Performed By: #### 1 1363, 1149T, 18239J, 73856, 8472 #### [facility] Default [address] [place] [address] Basic Metabolic Panelon 12-30 Calcium [Mass/Vol] 9.4 mg/dL Normal 8.2-10.2 [facility] Comment on above: Performed By: #### C BC, BMP #### [facility] [address] [place] [address] [place] Chloride [Moles/Vol] 103 mmol/L Normal 95-114 [facility] Comment on above: Performed By: #### C BC, BMP #### [facility] [address] [place] [address] [place] CO2 [Moles/Vol] 24.6 mmol/L Normal 22.0-30.0 [facility] Comment on above: Performed By: #### C BC, BMP #### [address] Creatinine [Mass/Vol] 0.75 mg/dL Normal 0.44-1.03 [facility] Comment on above: Performed By: #### C BC, BMP #### [address] Creatinine Clr Calc Pharmacy 123.87 [facility] Comment on above: Result Comment: PERF ORMED BY: [place] [address] PATHOLOGIST [employer] INSPECTOR BYRON SCOTT M.D. Performed By: #### C BC, BMP #### [address] Estimated GFR ( Jodie > 60 [facility] Comment on above: Result Comment: GFR estimated reference range: According to KDOQI guidelines, <60 ml/min/1.73m2 is sufficient to diagnose a patient with chronic kidney disease. Performed By: #### C BC, BMP #### [address] Estimated GFR (Non- Am > 60 [facility] Comment on above: Performed By: #### C BC, BMP #### [address] Glucose [Mass/Vol] 85 mg/dL Normal 70-100 [facility] Comment on above: Result Comment: [place] Glucose Reference Range is dependent on time and content of last meal. Glucose of more than 200 mg/dL in a nonstressed, ambulatory subject supports the diagnosis of Diabetes Mellitus. ADA recommended reference range Performed By: #### C BC, BMP #### [address] Potassium [Moles/Vol] 4.0 mmol/L Normal 3.5-5.1 [facility] Comment on above: Performed By: #### C BC, BMP #### [facility] [address] [place] [address] [facility] Sodium [Moles/Vol] 136 mmol/L Normal 136-146 [facility] Comment on above: Performed By: #### C GLENN, BMP #### [facility] [address] [place] [address] [facility] Urea nitrogen [Mass/Vol] 8 mg/dL Low 9- [facility] Comment on above: Performed By: #### C GLENN, BMP #### [facility] [address] [place] [address] [facility] CT abdomen pelvis wo conon 0 01-22-2021 CT abdomen pelvis wo [facility] [address] [place] [address] CT Scan Report Signed Patient: Magalie Abrams MR#: [id number] 43 : 2000 Acct:[id number] Age/Sex: 20 / F ADM Date: 01/22/21 Loc: ER Room: Type: [facility] ER Attending Dr: Ordering Provider: Aranza [...] Parker Jr., M.D.01/22/2021 3:14 PM Dictation Location: [place] [address] Transcribed By: [facility] 01/22/21 1514 Dictated By: Davonte Parker Jr, MD 01/22/21 1507 Signed By: 01/22/21 1514 Normal [facility] Complete Blood Count Auto Di ffon 01-22-2021 Basophils (Bld) [#/Vol] 0.0 10*3/uL Normal 0.0-0.2 [facility] Comment on above: Result Comment: PERF ORMED BY: [place] [address] PATHOLOGIST [employer] INSPECTOR BYRON SCOTT M.D. Performed By: #### C BC, BMP #### [facility] [address] Basophils/100 WBC (Bld) 0.2 % Normal . [facility] Comment on above: Performed By: #### C BC, BMP #### [facility] [address] Eosinophils (Bld) [#/Vol] 0.0 10*3/uL Normal 0.0-0.45 [facility] Comment on above: Performed By: #### C BC, BMP #### [facility] [address] [place] [address] [place] Eosinophils/100 WBC (Bld) 0.7 % Normal . [facility] Comment on above: Performed By: #### C BC, BMP #### [facility] [address] Erythrocyte distribution width (RBC) [Ratio] 13.2 % Normal 11.9-15.3 [facility] Comment on above: Performed By: #### C BC, BMP #### [facility] [address] Hematocrit (Bld) [Volume fraction] 40.9 % Normal 34.0-46.4 [facility] Comment on above: Performed By: #### C BC, BMP #### [facility] [address] Hemoglobin (Bld) [Mass/Vol] 13.7 g/dL Normal 11.8-15.4 [facility] Comment on above: Performed By: #### C BC, BMP #### [facility] [address] Lymphocytes (Bld) [#/Vol] 2.4 10*3/uL Normal 1.00-4.8 [facility] Comment on above: Performed By: #### C BC, BMP #### [address] Lymphocytes/100 WBC (Bld) 36.3 % Normal . [facility] Comment on above: Performed By: #### C BC, BMP #### [address] MCH (RBC) [Entitic mass] 29.8 pg Normal 24.7-34.3 [facility] Comment on above: Performed By: #### C BC, BMP #### [address] MCV (RBC) [Entitic vol] 88.6 fL Normal 80-100 [facility] Comment on above: Performed By: #### C BC, BMP #### [address] Mean Corpuscular HGB Conc 33.6 g/dL Normal 32.0-35.0 [facility] Comment on above: Performed By: #### C BC, BMP #### [address] Monocytes (Bld) [#/Vol] 0.4 10*3/uL Normal 0.0-0.8 [facility] Comment on above: Performed By: #### C BC, BMP #### [address] [place] [address] [place] Monocytes/100 WBC (Bld) 6.5 % Normal . [facility] Comment on above: Performed By: #### C BC, BMP #### [facility] [address] [place] [address] [place] Neutrophils (Bld) [#/Vol] 3.7 10*3/uL Normal 1.8-7.7 [facility] Comment on above: Performed By: #### C BC, BMP #### [facility] [address] Neutrophils/100 WBC (Bld) 56.3 % Normal . [facility] Comment on above: Performed By: #### C BC, BMP #### [facility] [address] Nucleated RBC/100 WBC (Bld) [Ratio] 0.1 % Normal 0-0.5 [facility] Comment on above: Performed By: #### C BC, BMP #### [facility] [address] [place] [address] [place] Platelet mean volume (Bld) [Entitic vol] 9.2 fL Normal 6.3-10.7 [facility] Comment on above: Performed By: #### C BC, BMP #### [facility] [address] [place] [address] [place] Platelets (Bld) [#/Vol] 199 10*3/uL Normal 150-450 [facility] Comment on above: Performed By: #### C BC, BMP #### [facility] [address] [place] [address] [place] RBC (Bld) [#/Vol] 4.62 10*6/uL Normal 3.60-5.00 [facility] Comment on above: Performed By: #### C BC, BMP #### [facility] [address] [place] [address] [place] WBC (Bld) [#/Vol] 6.6 10*3/uL Normal 4.5-11.0 [facility] Comment on above: Performed By: #### C BC, BMP #### [facility] [address] [place] [address] [place] Dipstick and Microscopicon 0 01-22-2021 Appearance (U) Clear Normal Clear [facility] Comment on above: Order Comment: Name Collection Type:: Voided Performed By: #### A DDONUAPLUS, UHCG, CUU #### [facility] [address] [place] [address] [place] Bacteria,Urine 1+ High None Seen [facility] Comment on above: Order Comment: Name Collection Type:: Voided Performed By: #### A DDONUAPLUS, UHCG, CUU #### [place], [place] [id number] [place] Bilirubin,Urine Negative Normal Negative [facility] Comment on above: Order Comment: Name Collection Type:: Voided Performed By: #### A DDONUAPLUS, UHCG, CUU #### [place] [id number] [place] Color (U) Yellow Normal Yellow [facility] Comment on above: Order Comment: Name Collection Type:: Voided Performed By: #### A DDONUAPLUS, UHCG, CUU #### [facility] [address] [place] [address] Glucose Ql (U) Normal Normal Normal [facility] Comment on above: Order Comment: Name Collection Type:: Voided Performed By: #### A DDONUAPLUS, UHCG, CUU #### [facility] [address] [place] [address] [place] Hyaline Casts,Urine 9-19 High 0-8 [facility] Comment on above: Order Comment: Name Collection Type:: Voided Performed By: #### A DDONUAPLUS, UHCG, CUU #### [place] [id number] [place] Ketones Ql (U) Trace High Negative [facility] Comment on above: Order Comment: Name Collection Type:: Voided Performed By: #### A DDONUAPLUS, UHCG, CUU #### [place] [id number] [place] Leukocyte esterase Test strip Ql (U) 2+ High Negative [facility] Comment on above: Order Comment: Name Collection Type:: Voided Performed By: #### A DDONUAPLUS, UHCG, CUU #### [address] Nitrite,Urine Negative Normal Negative [facility] Comment on above: Order Comment: Name Collection Type:: Voided Performed By: #### A DDONUAPLUS, UHCG, CUU #### [address] Occult Blood,Urine Negative Normal Negative [facility] Comment on above: Order Comment: Name Collection Type:: Voided Performed By: #### A DDONUAPLUS, UHCG, CUU #### [address] pH (U) 5.5 [pH] Normal 5.0-9.0 [facility] Comment on above: Order Comment: Name Collection Type:: Voided Performed By: #### A DDONUAPLUS, UHCG, CUU #### [address] Protein,Urine Trace High Negative [facility] Comment on above: Order Comment: Name Collection Type:: Voided Performed By: #### A DDONUAPLUS, UHCG, CUU #### [address] RBC LM.HPF (Urine sed) [#/Area] 0 /[HPF] Normal 0-4 [facility] Comment on above: Order Comment: Name Collection Type:: Voided Performed By: #### A DDONUAPLUS, UHCG, CUU #### [address] Specificy [place],Urine 1.029 Normal 1.001-1.030 [facility] Comment on above: Order Comment: Name Collection Type:: Voided Performed By: #### A DDONUAPLUS, UHCG, CUU #### [place] [id number] [place] Squamous Epithelial Cell,Urine 5-9 High 0-2 [facility] Comment on above: Order Comment: Name Collection Type:: Voided Performed By: #### A DDONUAPLUS, UHCG, CUU #### [facility] [address] [place] [address] Urobilinogen,Urine Normal Normal Normal [facility] Comment on above: Order Comment: Name Collection Type:: Voided Performed By: #### A DDONUAPLUS, UHCG, CUU #### [address] WBC,Urine 20-49 High 0-4 [facility] Comment on above: Order Comment: Name Collection Type:: Voided Performed By: #### A DDONUAPLUS, UHCG, CUU #### [address] HCG,Urineon 01-22-2021 Beta HCG ( test) Ql (U) Negative Normal [facility] Comment on above: Order Comment: Name Collection Type:: Voided Result Comment: PERF ORMED BY: [place] [address] PATHOLOGIST HANDBAG FRAMES INSPECTOR BYRON SCOTT M.D. Performed By: #### A DDONUAPLUS, UHCG, CUU #### [address] Urine Cultureon 01-22-2021 Bacteria identified Cx Nom (U) ORGANISM: Escherichia coli (O:ESCCOL) Commodore Count >100,000 Aerobic JOSE FRANCISCO Charge (NUC86) ---- SUSCEPTIBILITY --- ORGANISM: O:ESCCOL ANTIBIOTIC INTERPRETATION JOSE FRANCISCO Amikacin S <16 Ampicillin R >16 Ampicillin/Sulbactam I 1616/8 Aztreonam S <4 Cefazolin S <2 Cefepime S <2 Ceftazidime S <1 Ceftazidime/Avibactam S <8 Ceftriaxone S <1 Ciprofloxacin S <1 Ertapenem S <0.5 Gentamicin S <4 Levofloxacin S <2 Meropenem S <1 Nitrofurantoin S <32 Piperacillin/Tazobact am S <16 Tetracycline S <4 Tigecycline S <2 Tobramycin S <4 Trimethoprim/Sulfamet hoxazole S <2/38 S = SUSCEPTIBLE I = [...] RESISTANT TO ALL B-LACTAM DRUGS. PERFORMED BY: [place] [address] PATHOLOGIST HANDBAG FRAMES INSPECTOR BYRON SCOTT M.D. [facility] Comment on above: Performed By: #### [facility] #### [place] [id number] [facility] Vital Signs Date Time Vital Sign Value Performing Clinician Facility 10-28-2024 15:00-0400 Body height 170.2 cm Rajiv Small MD Work Phone: [facility] 10-28-2024 15:00-0400 Body mass index (BMI) [Ratio] 27.91 kg/m2 Rajiv Small MD Work Phone: [facility] 10-28-2024 15:00-0400 Body weight 80.83 kg Rajiv Small MD Work Phone: [facility] 10-28-2024 15:00-0400 Diastolic blood pressure 84 mm[Hg] Rajiv Small MD Work Phone: [facility] 10-28-2024 15:00-0400 Heart rate 82 /min Rajiv Small MD Work Phone: [facility] 10-28-2024 15:00-0400 Respiratory rate 18 /min Rajiv Small MD Work Phone: [facility] 10-28-2024 15:00-0400 Systolic blood pressure 120 mm[Hg] Rajiv Small MD Work Phone: [facility] 02-05-2024 10:57-0400 Body height 170.2 cm Ilsa Floro CNM Work Phone: [facility] 02-05-2024 10:57-0400 Body mass index (BMI) [Ratio] 27.41 kg/m2 Ilsa Floro CNM Work Phone: [facility] 02-05-2024 10:57-0400 Body weight 79.38 kg Ilsa Floro CNM Work Phone: [facility] 02-05-2024 10:57-0400 Diastolic blood pressure 70 mm[Hg] Ilsa Floro CNM Work Phone: [facility] 02-05-2024 10:57-0400 Systolic blood pressure 116 mm[Hg] Ilsa Floro CNM Work Phone: [facility] 12-05-2023 14:04-0400 Body mass index (BMI) [Ratio] 27.88 kg/m2 Ilsa Floro CNM Work Phone: [facility] 12-05-2023 14:04-0400 Body weight 80.74 kg Ilsa Floro CNM Work Phone: [facility] 12-05-2023 14:04-0400 Diastolic blood pressure 72 mm[Hg] Ilsa Floro CNM Work Phone: [facility] 12-05-2023 14:04-0400 Systolic blood pressure 118 mm[Hg] Ilsa Floro CNM Work Phone: [facility] 10-22-2021 11:57-0400 Diastolic blood pressure 68 mm[Hg] Ilsa Floro COLLEGE DEAN - CNM Work Phone: [facility] 10-22-2021 11:57-0400 Heart rate 80 /min Ilsa Floro COLLEGE DEAN - CNM Work Phone: [facility] 10-22-2021 11:57-0400 Respiratory rate 16 /min Ilsa Whitmore APRN - CNM Work Phone: [facility] 10-22-2021 11:57-0400 Systolic blood pressure 127 mm[Hg] Ilsa Whitmore APRN - CNM Work Phone: [facility] 10-22-2021 10:16-0400 Body height 170.2 cm Ilsa Whitmore APRN - CN Work Phone: [facility] 10-22-2021 10:16-0400 Body mass index (BMI) [Ratio] 29.76 kg/m2 Ilsa Whitmore APRN - CN Work Phone: [facility] 10-22-2021 10:16-0400 Body weight 86.18 kg Ilsa Whitmore APRN - CN Work Phone: [facility] 10-22-2021 10:10-0400 Body temperature 98.4 [degF] Ilsa Whitmore APRN - CN Work Phone: [facility] Encounters Encounter Date Encounter Type Care Provider Facility Start: 12-27-2024 ambulatory RAJIV [facility] Start: 12-25-2024 ambulatory [facility] Start: 12-03-2024 End: 12-03-2024 ambulatory [facility] Start: 10-28-2024 End: 10-28-2024 Office outpatient visit 15 minutes Rajiv Small MD Work Phone: [facility] Comment on above: Rhus dermatitis (Nilda rajiv Dx) Start: 10-28-2024 End: 10-28-2024 ambulatory RAJIV Francis JARED Not Available Start: 10-28-2024 End: 10-28-2024 Bamboo flowsheet Rajiv Small MD Work Phone: [facility] Start: 10-28-2024 End: 10-28-2024 Bamboo flowsheet Rajiv Small MD Work Phone: [facility] Start: 10-16-2024 ambulatory RAJIV SMALL [facility] Start: 09-23-2024 End: 09-23-2024 ambulatory [facility] Francis SMALL [facility] Start: 02-05-2024 End: 02-05-2024 Bamboo flowsheet Ilsa L Floro CNM Work Phone: [facility] Start: 02-05-2024 End: 02-05-2024 Bamboo flowsheet Ilsa L Floro CNM Work Phone: [facility] Start: 02-05-2024 End: 02-05-2024 Office outpatient visit 15 minutes Ilsa L Floro CNM Work Phone: [facility] Comment on above: Unwanted fertility ( Primary Dx) Start: 02-05-2024 End: 02-05-2024 ambulatory ILSA L FLORO Not Available Start: 01-23-2024 End: 01-23-2024 Telephone encounter Ilsa L Floro CNM Work Phone: [facility] Start: 12-27-2023 End: 12-27-2023 Telephone encounter Ilsa L Floro CNM Work Phone: [facility] Start: 12-25-2023 End: 12-25-2023 Telephone encounter Ilsa L Floro CNM Work Phone: [facility] Start: 12-05-2023 End: 12-05-2023 Gynecological examination normal Ilsa L Floro CNM Work Phone: [facility] Start: 12-05-2023 End: 12-05-2023 Periodic preventive med est patient 18-39 yrs Ilsa L Floro CNM Work Phone: [facility] Comment on above: Normal gynecologic e xamination; Screening for cervical cancer; Screen for STD (sexually transmitted disease) Start: 12-05-2023 End: 12-05-2023 ambulatory ILSA L FLORO Not Available Start: 11-02-2023 End: 11-02-2023 ambulatory RAJIV SMALL Not Available Start: 07-22-2023 [facility] Work Phone: Start: 06-05-2023 Clinisync Result Encounter Ilsa Whitmore CNM Work Phone: [facility] Unsolicited Start: 06-05-2023 Clinisync Result Encounter Ilsa Whitmore CNM Work Phone: [facility] Unsolicited Start: 06-04-2023 Clinisync Result Encounter Ilsa Whitmore CNM Work Phone: [facility] Unsolicited Start: 06-04-2023 Clinisync Result Encounter Ilsa Whitmore CNM Work Phone: [facility] Unsolicited Start: 04-15-2023 Letter encounter Jan adina Start: 07-13-2022 [facility] Start: 10-22-2021 End: 10-22-2021 ambulatory ILSA Perez [facility] Start: 10-22-2021 End: 10-22-2021 Subsequent hospital visit by physician Ilsa Murray CNM Work Phone: [facility] Start: 07-18-2021 Letter encounter [place] [facility] Start: 04-19-2018 End: 04-20-2018 Patient encounter procedure Bala Wick Facility:[id number] Start: 04-16-2018 End: 04-17-2018 Patient encounter procedure Bala Misravi Facility:[id number] Procedures Date Procedure Procedure Detail Performing Clinician Start: 12-05-2023 CHLAMYDIA/N.ONORRHOE AE AND T. VAGINALIS RNA, QUALITATIVE TMA,PAP VIAL Ilsa Reilly Allenmatt CNM Work Phone: Start: 12-05-2023 THINPREP IMAGING PAP AND HPV DNA REFLEX HPV 16,18 Ilsa Grover Tiffanyo CNM Work Phone: Start: 06-05-2023 ALL CBC WITH AUTO DIFF Ilsa Whitmore CN Work Phone: Start: 06-04-2023 HMHP CBC WITH PLATEL ET NO DIFFERENTIAL Ilsamoe Whitmore CN Work Phone: Start: 10-22-2021 Urinalysis microscopic only Ilsa Whitmore COLLEGE DEAN - CN Work Phone: Start: 10-22-2021 Urnls dip stick/tabl et rgnt auto w/o microscopy Ilsa Whitmore COLLEGE DEAN - CN Work Phone: Start: 06-07-2021 Antibody rubella Comment on above: Order Comment: [facility] Testing performed at: [facility], [employer] [facility], [address] [facility], [address] [place] [address], [id number], Print Binding And Finishing Worker: Amado Horner MD [facility] Collection Date/Time: [facility] Results Received Date/Time: [facility] Reported Date/Time: Result Comment: Inde x Interpretation ----- <0.90 Not consistent with immunity 0.90-0.99 Equivocal > or = 1.00 Consistent with immunity The presence of rubella IgG antibody suggests immunization or past or current infection with rubella virus. Performed By: #### 1 1363, [id number], [id number], [id number], 8472 #### [facility] [address] [place] [address] Plan of Treatment Date Care Activity Detail Author Start: 2050 Shingles (RZV) Vacci ne (1 of 2) Shingles (RZV) Vaccine (1 of 2) [facility] Start: 12-29-2024 Influenza vaccination Influenza Vacc ine (#1) [facility] Start: 10-28-2024 End: 10-28-2024 Patient encounter procedure 10/28/2024 3:00 PM EDT Office Visit [facility] FNTracy JEAN BAPTISTE [address] [place] [address] Rajiv Small MD [address] [place] [address] Arrived [facility] Comment on above: Arrived Start: 02-05-2024 End: 02-05-2024 Patient encounter procedure [facility] Comment on above: Arrived Start: 12-30-2023 Influenza vaccination Influenza Vacc ine (#1) [facility] Start: 06-18-2023 End: 06-18-2023 ambulatory 06/18/2023 1:00 PM EST Visit [facility] [address] [place] [address] Ilsa Whitmore, CNM [address] [place], [place] [id number] [facility] Start: 12-29-2022 Influenza vaccination Influenza Vacc ine (#1) [facility] Start: 01-28-2022 Influenza vaccination Influenza Vacc ine (#1) [facility] Start: 12-29-2021 Influenza vaccination Flu vacc ine (Season Ended) [facility] Start: 2021 Screening for malign ant neoplasm of cervix Pap Smear [facility] Start: 11-28-2020 Influenza vaccination Influenza Vacc ine (#[facility] Start: 2019 DTaP/Tdap/Td vaccine (1 - Tdap) DTaP/Tdap/Td vaccine (1 - Tdap) [facility] Start: 2019 Hepatitis A (HAV) Vaccine (optional start 19+ years) Hepatitis A (HAV) Vaccine (optional start 19+ years) [facility] Start: 2018 [facility] C [facility] Start: 2018 Screening for Chlamy rcuz trachomatis STI Screening (Age 18-24) [facility] Start: 2018 STI Screening (Age 18-24) STI Screening (Age 18-24) [facility] Start: 2018 Tetanus + diphtheria + acellular pertussis vaccine (product) Tdap Booster [facility] Start: 2016 Meningococcal B (Bexsero,OMV) Vaccine (Optional,16-23 years) Meningococcal B (Bexsero,OMV) Vaccine (Optional,16-23 years) [facility] Start: 2016 Meningococcal B (Bexsero,OMV) Vaccine (Optional,16-23 years) (#1) Meningococcal B (Bexsero,OMV) Vaccine (Optional,16-23 years) (#1) [facility] Start: 2016 Screening for Chlamy cruz trachomatis [facility]lamydia [facility] Start: 2015 HIV screening [facility] Start: 2012 Depression Screen Depression [facility] Start: 2011 HPV vaccine (1 - 2-d ose series) HPV vaccine (1 - 2-dose series) [facility] [employer] Start: 2011 Vaccination for bk n papillomavirus [facility] Start: 2005 COVID-19 Vaccine (1) COVID-19 Vaccin e (1) [facility] Start: 2001 Varicella vaccine (1 of 2 - 2-dose childhood series) Varicella vaccine (1 of 2 - 2-dose childhood series) [facility] Start: 2000 COVID-19 Vaccine (#1) COVID-19 Vacci ne (#1) [facility] Start: 2000 Hepatitis B vaccination Hepati tis B (HBV) Vaccine (1 of 3 - 3-dose series) [facility] End: 10-22-2021 Bacteria identified in Urine by Culture [facility] Comment on above: One Time for 1 Occur rences starting 10/22/2021 until 10/22/2021 Once for 1 Occurrenc es starting 10/22/2021 until 10/22/2021 Nonrebreather mask oxygen Nonrebreather mask oxygen Respiratory Care Routine As directed - RT (PRN) until discontinued starting 10/22/2021 [employer] [facility]: Comment on above: As directed - RT (FL N) until discontinued starting 10/22/2021 End: 10-22-2021 SVE SVE Point of Care Testing Routine One Time for 1 Occurrences starting 10/22/2021 until 10/22/2021 [facility] Comment on above: One Time for 1 Occur rences starting 10/22/2021 until 10/22/2021 Immunizations Immunization Date Immunization Notes Care Provider Fa [facility] 03-20-2023 RHO(D) immune globul in- IV or IM Rajiv Small MD Work Phone: [facility] 01-05-2022 RHO(D) immune globul in- IV or IM Rajiv Small MD Work Phone: [facility] 11-01-2021 tetanus toxoid, redu magdalena diphtheria toxoid, and acellular pertussis vaccine, adsorbed Rajiv Small MD Work Phone: [facility] 10-18-2021 RHO(D) immune globul in- IV or IM Rajiv Small MD Work Phone: [facility] 10-30-2019 tuberculin skin test ; purified protein derivative solution, intradermal [facility] 12-17-2017 meningococcal polysaccharide (groups A, C, Y and W-135) diphtheria toxoid conjugate vaccine (MCV4P) Rajiv Small MD Work Phone: [facility] 11-04-2014 human papilloma viru s vaccine, quadrivalent Rajiv Small MD Work Phone: [facility] 11-04-2014 meningococcal polysaccharide (groups A, C, Y and W-135) diphtheria toxoid conjugate vaccine (MCV4P) Rajiv Small MD Work Phone: [facility] 11-04-2014 varicella virus vaccine Rajiv Small MD Work Phone: [facility] 12-11-2012 tetanus toxoid, redu magdalena diphtheria toxoid, and acellular pertussis vaccine, adsorbed Rajiv Small MD Work Phone: [facility] 01-25-2006 varicella virus vaccine Rajiv Small MD Work Phone: [facility] 12-21-2005 DTaP-hepatitis B and poliovirus vaccine Rajiv Small MD Work Phone: [facility] 11-10-2002 diphtheria, tetanus toxoids and acellular pertussis vaccine Rajiv Small MD Work Phone: [facility] 11-10-2002 measles, mumps and r ubella virus vaccine Rajiv Small MD Work Phone: [facility] 10-23-2002 pneumococcal conjuga te vaccine, 7 valent Rajiv Small MD Work Phone: [facility] 04-29-2001 haemophilus influenz ae type b vaccine, conjugate unspecified formulation Rajiv Small MD Work Phone: [facility] 04-29-2001 measles, mumps and r ubella virus vaccine Rajiv Small MD Work Phone: [facility] 2000 diphtheria, tetanus toxoids and acellular pertussis vaccine, unspecified formulation Rajiv Small MD Work Phone: [facility] 2000 haemophilus influenz ae type b conjugate and Hepatitis B vaccine Rajiv Small MD Work Phone: [facility] 2000 poliovirus vaccine, inactivated Rajiv Small MD Work Phone: [facility] 2000 diphtheria, tetanus toxoids and acellular pertussis vaccine, unspecified formulation Rajiv Small MD Work Phone: [facility] 2000 haemophilus influenz ae type b vaccine, conjugate unspecified formulation Rajiv Small MD Work Phone: [facility] 2000 poliovirus vaccine, inactivated Rajiv Small MD Work Phone: [facility] 2000 diphtheria, tetanus toxoids and acellular pertussis vaccine, unspecified formulation Rajiv Small MD Work Phone: [facility] 2000 haemophilus influenz ae type b conjugate and Hepatitis B vaccine Rajiv Small MD Work Phone: [facility] 2000 poliovirus vaccine, inactivated Rajiv Small MD Work Phone: [facility] 2000 hepatitis B vaccine, pediatric or pediatric/adolescent dosage Rajiv Small MD Work Phone: [facility] Payers Date Payer Category Payer Medicaid [id number] 2022 Medicaid [id number] 2021 Private Health Insurance [id number] 2021 Unknown [id number] 2008 Private Health Insurance [id number] 2000 Unknown [id number] [id number] 2000 Unknown [id number] 2.16.8 [id number] 2000 Unknown [id number] 2.16.84 [id number] 2000 Unknown [id number] 2.16.84 [id number] 2000 Unknown [id number] 2.16.84 [id number] 2000 Unknown [id number] 2.16. [id number] 2000 Unknown [id number] 2.16. [id number] 2000 Unknown [id number] 2.16. [id number] 2000 Unknown [id number] 2.16. [id number] 2000 Unknown [id number] 2.16. 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) [employer] Phone: Start: 04-14-2021 [employer] Phone: Start: 10-12-2021 End: 10-22-2021 Exposure to SARS-CoV-2 (event) Not sure [employer] Phone: Start: 01-24-2023 End: 07-16-2023 Gender identity Not on file [facility] Start: 2023 End: 10-28-2024 Alcohol intake Lifetime non-drinker (finding) [facility] Start: 01-24-2023 End: 07-16-2023 History of Social function [facility] Start: 10-24-2022 Alcohol Comment caffeine intak e : 1-2 cups per day [facility] The thought of harming myself has occurred to me Never [facility] Clinical Notes 10-22-2021 to 10-28-2024 Rajiv Small MD - 10/28/2024 3:00 PM EDTIlsa Whitmore CNM - 02/05/2024 11:00 AM EDTTelephone Encounter - Rajiv Templeton - 01/23/2024 12:15 PM EDTTelephone Encounter - Rajiv Jareth - 12/27/2023 3:04 PM EDT Note Date & Type Note Facility 10-28-2024 History of Presen t illness Narrative Images from the original note were not included. Subjective Patient ID: Magalie Abrams is a 24 y.o. female who presents for Poison Sanaz and Annual Exam. HPI History of Present Illness The patient presents for evaluation of poison sanaz. She has been experiencing symptoms of poison sanaz for the past 4 days, which initially showed signs of improvement but have since worsened. She is currently managing the itchiness effectively. She is scheduled for an embryo transfer in the coming weeks and is concerned about potential interactions between prednisone and her other medications. Her current medication regimen includes baby aspirin, and she is due to start a Medrol Dosepak in the next 1 to 2 weeks, coinciding with the start of her menstrual cycle. She has previously undergone one unsuccessful embryo transfer and is now preparing for a second attempt. Objective BP 120/84 (BP Location: Right arm, Patient Position: Sitting, BP Cuff Size: Adult) Pulse 82 Resp 18 Ht 5' 7 Wt 178 lb 3.2 oz BMI 27.91 kg/m Physical Exam Physical Exam General: Appears well-nourished and in no acute distress. Skin: Erythematous, pruritic rash consistent with poison sanaz.on foreaarms and between fingers Assessment & Plan Rhus dermatitis Orders: predniSONE (Deltasone) 10 MG tablet; Take 1 tablet (10 mg) by mouth 5 (five) times a day for 2 days, THEN 1 tablet (10 mg) 4 (four) times a day for 2 days, THEN 1 tablet (10 mg) 3 (three) times a day for 2 days, THEN 1 tablet (10 mg) 2 (two) times a day for 2 days, THEN 1 tablet (10 mg) Daily for 2 days. fluocinonide (Lidex) 0.05 % ointment; Apply topically 2 (two) times a day as needed for irritation or rash Avoid face and groin. Assessment & Plan 1. Poison sanaz. - Symptoms have been present for 4 days. Poison sanaz typically lasts 21 days and peaks at 2 weeks, so it is expected to worsen before improving. - A prescription for prednisone has been provided, but she is advised to consult with her fertility specialist before starting the medication. - If prednisone is not approved, a topical treatment will be considered. - Medication sent to pharmacy. 2. Embryo transfer. - She is scheduled for an embryo transfer in the next 1 to 2 weeks and will start a Medrol Dosepak (methylprednisolone) as part of the treatment protocol. - She is currently on baby aspirin and will begin the Medrol Dosepak when her cycle starts. - The potential interaction between prednisone and the Medrol Dosepak has been discussed, and she is advised to coordinate with her fertility specialist. - Medication sent to pharmacy. documented in this encounter [facility] 02-05-2024 History of Presen t illness Narrative PROBLEM VISIT Magalie Abrams is 23 y.o. 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 Patient has had an injection. History: Past Medical History: Diagnosis Date HSV-2 (herpes simplex virus 2) infection Hx of being hospitalized 2013 concussion Ovarian cyst No past surgical history on file. No family history on file. @SOCHX@ Allergies: Allergies Allergen Reactions Penicillin G Hives Medications: Current Outpatient Medications on File Prior to Visit Medication Sig Dispense Refill medroxyPROGESTERone (Depo-Provera) 150 MG/ML injection Inject 1 mL (150 mg) into the shoulder, thigh, or buttocks every 3 (three) months 1 mL 2 valACYclovir (Valtrex) 500 MG tablet Take 1 tablet (500 mg) by mouth in the morning. Beginning at 36 weeks gestation. Begin on May 14, 2023. 30 tablet 4 No current facility-administered medications on file prior to visit. Vitals: 02/05/24 1057 BP: 116/70 HPI: ROS: Review of Systems Patient had wellness exam with me last month. She is here today to discuss going off of the depo and going on OCPs. She is currently enrolled in a surrogacy program and they want her to have 2-3 cycles of a bleed. She does not have that on depo so we will start her on OCPs. Her last depo was due in December and she did not get that. test today is negative. RX OCPs sent to her pharmacy. Physical exam: Physical Exam Assessment and Plan: There are no diagnoses linked to this encounter. No follow-ups on file. There are no Patient Instructions on file for this visit. Kesha Guevara MA,02/05/2024 11:09 AM documented in this encounter [facility] 01-23-2024 Telephone encounter Note Patient called scheduled appt on the 8th for to change her control medication she wanted to know if she could be seen sooner then the 8th. Thank you [facility] 01-23-2024 Miscellaneous Notes Patient called scheduled appt on the for to change her control medication she wanted to know if she could be seen sooner then the 8th. Thank you documented in this encounter [facility] 12-27-2023 Telephone encounter Note Marisol called saying she had faxed over Medical Records Release form on 12-18-23 she received records on . She was missing some records for 2020 and 2021 and [facility]BS records and results. If could please fax these records. Thank you [facility] 12-27-2023 Miscellaneous Notes Marisol called saying she had faxed over Medical Records Release form on 12-18-23 she received records on . She was missing some records for 2020 and 2021 and [facility]BS records and results. If could please fax these records. Thank you documented in this encounter [facility] 12-25-2023 Telephone encounter Note PT HAS surrogate forms to be filled, out the form is asking for patients bp / vitals, last pap results, ect. She wants to know if she needs an appointment or if she can just drop off forms. [phone] [facility] 12-25-2023 Miscellaneous Notes PT HAS surrogate forms to be filled, out the form is asking for patients bp / vitals, last pap results, ect. She wants to know if she needs an appointment or if she can just drop off forms. [phone] documented in this encounter [facility] 12-05-2023 History of Presen t illness Narrative YEARLY HPI: This is a established patient. Chief Complaint Patient presents with Gynecologic Exam Here for annual exam. 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 No pertinent surgical history. No family history on file. Allergies: Allergies Allergen Reactions Penicillin G Hives Medications: Current Outpatient Medications on File Prior to Visit Medication Sig Dispense Refill medroxyPROGESTERone (Depo-Provera) 150 MG/ML injection Inject 1 mL (150 mg) into the shoulder, thigh, or buttocks every 3 (three) months 1 mL 2 valACYclovir (Valtrex) 500 MG tablet Take 1 tablet (500 mg) by mouth in the morning. Beginning at 36 weeks gestation. Begin on May 14, 2023. 30 tablet 4 No current facility-administered medications on file prior to visit. ROS: Review of Systems All other systems reviewed and are negative. Vitals: 12/05/23 1404 BP: 118/72 Physical exam: Physical Exam Vitals reviewed. Constitutional: Appearance: Normal appearance. HENT: Head: Normocephalic. Right Ear: Tympanic membrane normal. Left Ear: Tympanic membrane normal. Mouth/Throat: Mouth: Mucous membranes are moist. Eyes: Pupils: Pupils are equal, round, and reactive to light. Cardiovascular: Rate and Rhythm: Normal rate and regular rhythm. Pulses: Normal pulses. Heart sounds: Normal heart sounds. Pulmonary: Effort: Pulmonary effort is normal. Breath sounds: Normal breath sounds. Chest: Breasts: Right: Normal. Left: Normal. Abdominal: General: Abdomen is flat. Bowel sounds are normal. Palpations: Abdomen is soft. Tenderness: There is no abdominal tenderness. Genitourinary: General: Normal vulva. Exam position: Lithotomy position. Vagina: Normal. No tenderness. Cervix: Normal. No cervical motion tenderness. Uterus: Normal. Adnexa: Right adnexa normal and left adnexa normal. Musculoskeletal: General: Normal range of motion. Cervical back: Normal range of motion and neck supple. Skin: General: Skin is warm and dry. Neurological: General: No focal deficit present. Mental Status: She is alert and oriented to person, place, and time. Psychiatric: Mood and Affect: Mood normal. Assessment and Plan: 1. Annual exam 2. SBE discussed: Yes 3. Diet and exercise discussed: Yes 4. Wt control discussed: No 5. Safe sex discussed: No Patient is interested in becoming a surrogate. She has an agency she is working with and would like some paperwork filled out if needed. Magalie was seen today for gynecologic exam. Diagnoses and all orders for this visit: Normal gynecologic examination Screening for cervical cancer No follow-ups on file. There are no Patient Instructions on file for this visit. 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 documented in this encounter [employer] Phone: Evaluation note Diagnosis Abdominal pain affecting , antepartum- Primary documented in this encounter [employer] Phone: evaluation note* Diagnosis Unwanted fertility- Primary documented in this encounter [facility] HealthcareEvaluation note* Diagnosis Normal gynecologic examination Screening for cervical cancer Screening for malignant neoplasm of the cervix Screen for STD (sexually transmitted disease) Screening examination for venereal disease documented in this encounter [facility] HealthcareEvaluation note* Diagnosis Rhus dermatitis- Primary [facility] Instructions* Jane Sullivan RN - 10/22/[address] Mary Beth Clemente [facility] Dr. Yasmine Sánchez CN [address] [facility] [address] [facility] [address] Yasmine Reilly CN [address] [facility] [id number] [phone] Lisa Whitmore, MSN, COLLEGE DEAN, CNM [facility] [address] [facility] [address] [address] Sanders [facility] [address] Kassy Henderson CN [address] [place] 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 DATE CREATED AUTHOR AUTHOR'S ORGANIZ ATION 05/24/2021 [facility] DATE CREATED AUTHOR AUTHOR'S ORGANIZ ATION [facility]20[facility] DATE CREATED AUTHOR AUTHOR'S ORGANIZ ATION 11/01/2021 [facility] dical Specialist DATE CREATED AUTHOR AUTHOR'S ORGANIZ ATION 10/30/2024 [facility] dical Specialists EPIC DATE CREATED AUTHOR AUTHOR'S ORGANIZ ATION 12/28/2024 [facility] Reason for Visit (unrecogniz ed section and content) Reason Comments Abdominal Pain Reason Comments Contraception Reason Comments Gynecologic Exam Reason Comments Poison Sanaz Annual Exam Scheduled Active and Recently Administ ered Medications [...] infection 1146 (Given - Provid er: Jane Sullivan, MARIA ELENA) Continuous Medication Order 10/20/2021 10/21/2021 10/22/2021 lactated ringers infusion IntraVENous, at 200 mL/hr, CONTINUOUS, Starting on 10/22/21 at 1215, After bolus given 1158 (Rate/Dose [place] ge - Provider: Jane Sullivan, MARIA ELENA)1247 (Stopped - Provider: Jane Sullivan, MARIA ELENA) Care Teams (unrecognized sec tion and content) Automotive Lube Technician Relationship Specialty Start Date End Date Rajiv Small MD [address] [place] [address] PCP - General 04/25/13 Automotive Lube Technician Relationship Specialty Start Date End Date Rajiv Small MD [address] [place] [address] PCP - General Family Medicine 10/24/22 Damaris Odonnell NP [address] [facility] [place] [address] Nurse Practitioner Family Medicine 10/24/22 Automotive Lube Technician Relationship Specialty Start Date End Date Rajiv Small MD [address] [facility] [place] [address] PCP - General Family Medicine 10/24/22 Damaris Odonnell NP [address] [facility] [place] [address] Nurse Practitioner Family Medicine 10/24/22 Automotive Lube Technician Relationship Specialty Start Date End Date Rajiv Small MD [address] [facility] [place] [address] PCP - General Family Medicine 10/24/22 Damaris Odonnell NP [address] [facility] [place] [address] Nurse Practitioner Family Medicine 10/24/22 Automotive Lube Technician Relationship Specialty Start Date End Date Rajiv Small MD [address] [facility] [place] [address] PCP - General Family Medicine 10/24/22 Damaris Odonnell NP [address] [facility] [place] [address] Nurse Practitioner Family Medicine 10/24/22 Automotive Lube Technician Relationship Specialty Start Date End Date Rajiv Small MD [address] [facility] [place] [address] PCP - General Family Medicine 10/24/22 Damaris Odonnell NP [address] [facility] [place] [address] Nurse Practitioner Family Medicine 10/24/22 Automotive Lube Technician Relationship Specialty Start Date End Date Rajiv Small MD [address] [facility] [place] [address] PCP - General Family Medicine 10/24/22 Damaris Odonnell NP [address] [place] [address] Nurse Practitioner Family Medicine 10/24/22 FOR RECORDS PERTAINING TO PATIENTS WHO ARE [...] BE BASED ON THE PRIMARY CLINICAL RECORDS. [facility] [employer] provides no warranty or guarantee of the accuracy or completeness of information in this document.
[2024-12-31 00:23] VITALS: BP 149/94; PULSE 97; TEMP 37.6; O2SAT 99; BMI 29.8
--- NOTE | 2024-12-31 00:39 | ED_ITS ---
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 She already has undergone serial quantitative hCG testing which showed a miscarriage and a nonviable implant. She had been taking Lovenox at the recommendation of her physician in order to decrease the likelihood of miscarriage. However she stopped the Lovenox once the diagnosis was made. Now she presents out of concern because people had told her that by stopping the Lovenox she is at risk of fatal blood clot in her legs, lungs, arms. She did not attempt to reach out to her provider in [place] or her local box truck owner operator in [place]. She has no complaints at this time. No vaginal bleeding or abdominal pain. No lightheadedness or dizziness. No chest pain or shortness of breath. No upper or lower extremity swelling or pain. Related Data Home Medications ?Medication ?Instructions ?Recorded ?Confirmed docusate sodium 100 mg capsule mg PO 06/04/23 (Stool Softener) ferrous sulfate 325 mg (65 mg mg PO 06/04/23 iron) tablet,delayed release valacyclovir 500 mg tablet mg 06/04/23 aspirin 81 mg capsule 81 mg PO DAILY 12/31/2407/22 fluocinonide 0.05 % topical topical 12/31/24 ointment norgestimate 0.25 mg-ethinyl tab 12/31/24 estradiol 0.035 mg tablet (Sprintec (28)) prednisone 10 mg tablet mg 12/31/24 Allergies Allergy/AdvReac Type Severity Reaction Status Date / Time Penicillins Allergy Severe Hives Verified 12/31/24 00:23 amoxicillin Allergy Mild Hives Verified 12/31/24 00:23 Opioid HPI Opioid Management Most Recent Opioid Data: Last Pain Scale 3 06/05/23, 12:02 Ur Phencyclidine Scrn, (NEGATIVE) Negative , 05:05 [facility] Medical History (Updated 12/31/24 @ 00:43 by Angel Arzola) 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 afebrile General: Well-appearing and in no apparent distress. Skin: Warm, dry, no pallor noted. Eye: Pupils are equal, round and EOMI. No scleral icterus. Ears, Nose, Mouth, and Throat: Oral mucosa is moist Cardiovascular: Regular Rate and Rhythm without murmur, gallop or rub. Respiratory: No accessory muscle use or respiratory distress. Lungs are clear to auscultation, no wheezing, rales or rhonchi Musculoskeletal: normal ROM GI: Abdomen is soft, non-distended. Normal bowel sounds. No tenderness to palpation. No rebound, guarding, or rigidity noted. Neurological: A&O x4. No cranial nerve dysfunction observed. No truncal ataxia. Moves all extremities. Sensation intact. Psychiatric: Cooperative and interactive. Normal mood and affect. Constitutional Vital Signs, click to edit/add: Last Vital Signs Temp 99.6 F 12/31/24 00:23 Pulse 97 H 12/31/24 00:23 Resp 18 12/31/24 00:23 BP 149/94 H 12/31/24 00:23 Pulse Ox 99 12/31/24 00:23 O2 Del Method Room Air 12/31/24 00:23 Course Vital Signs Vital signs: Vital Signs Temperature 99.6 F 12/31/24 00:23 Pulse Rate 97 H 12/31/24 00:23 Respiratory Rate 18 12/31/24 00:23 Blood Pressure 149/94 H 12/31/24 00:23 Pulse Oximetry 99 12/31/24 00:23 Oxygen Delivery Method Room Air 12/31/24 00:23 Temperature 99.6 F 12/31/24 00:23 Pulse Rate 97 H 12/31/24 00:23 Respiratory Rate 18 12/31/24 00:23 Blood Pressure 149/94 H 12/31/24 00:23 Pulse Oximetry 99 12/31/24 00:23 Oxygen Delivery Method Room Air 12/31/24 00:23 Medical Decision Making MDM Narrative Medical decision making narrative: This patient is here because of the information that someone else told her by phone or that she looked up online regarding fear of stopping Lovenox a couple days after beginning it, in association with her attempted surrogacy. She was given reassurance. Her exam was normal. She was told to call her advertising campaign manager associated with surrogacy to discuss further. Discharge Plan Discharge Chief Complaint: Recheck/Abnormal Lab/Rx Clinical Impression: No problem, feared complaint unfounded Patient Disposition: Home, Self-Care Time of Disposition Decision: 00:39 Prescriptions / Home Meds: No Action valacyclovir 500 mg tablet docusate sodium [Stool Softener] 100 mg capsule PO ferrous sulfate 325 mg (65 mg iron) tablet,delayed release (DR/EC) PO norgestimate-ethinyl estradiol [Sprintec (28)] 0.25-0.035 mg tablet prednisone 10 mg tablet fluocinonide 0.05 % ointment TOPICAL aspirin 81 mg capsule 81 mg PO DAILY Print Language: Slovak Instructions: Normal Exam (ED) Additional Instructions: Pt instructed to follow up with her Assisted Living Executive Director involved with her surrogacy Referrals: Physician,Non-Staff, MD [Primary Care Provider] - 1 week
== END 2024-12-31 00:54 | disposition home or self-care (01) ==
PROVIDERS: Emergency Provider Emergency Medicine
DX: Z71.1 Person with feared health complaint in whom no diagnosis is made (principal)
CPT/HCPCS: 99281